=== PATIENT | female | born 1945 | race Caucasian/White ===

== ENCOUNTER → 2019-05-11 16:55 | Outpatient (BNVA) | payer MEDICARE, SELFPAY | PROVIDERS: Family Provider Family Medicine; PCP Family Medicine; Visit Provider Nurse Practitioner Family | DX: J98.11 Atelectasis (principal); J84.10 Pulmonary fibrosis, unspecified; R07.9 Chest pain, unspecified; R05 Cough; R69 Illness, unspecified; R53.1 Weakness; R09.89 Other specified symptoms and signs involving the circulatory and respiratory systems | CPT/HCPCS: 71046 ==

== ENCOUNTER 2019-05-15 12:03 | Emergency (ER) | payer MEDICARE, SELFPAY ==
[2019-05-15 12:10] VITALS: BP 139/65; PULSE 75; RESP 16; TEMP 36.4; O2SAT 96; BMI 26.2
--- NOTE | 2019-05-15 12:39 | ED_ITS ---
Entered by Suni Luis, acting as scribe for Dania Hernandez DO HPI - SOB/Dyspnea General: Chief Complaint: Shortness of Breath/Dyspnea Stated Complaint: SOB Time Seen by Provider: 05/15/19 12:39 Source: patient Mode of arrival: ambulatory Limitations: no limitations History of Present Illness: HPI Narrative: 73 yo Female presents to ED with complaint of shortness of breath. Pt states that this has been going on for 2-3 days. Pt states that it feels tight in her chest. Pt states that she was seen on Saturday at [facility] [place] and had a chest xray and was given antibiotics and an inhaler. Pt states that she hasn't gotten better. MD elicited complaint: shortness of breath Onset (ago): day(s) Context: recent illness Timing: constant Associated symptoms: Reports chest congestion; Deny abdominal pain, chest pain, extremity pain, fever(s), hemoptysis, nausea, orthopnea, polydipsia, polyuria or vomiting Treatment prior to arrival: bronchodilator Related Data: Home oxygen amount: none Review of Systems Const: Denies: fever, chills, change in appetite or malaise Eyes: Denies: change in vision, blurry vision, eye discharge or eye redness ENMT: Denies: throat pain, uvular edema, painful swallowing, mouth pain, dental pain, nasal congestion or facial/sinus pain Card: Denies: chest pain, irregular heart rhythm, swelling of feet/ankles, shortness of breath on exertion, shortness of breath when lying down or leg pain with exertion Resp: Reports: chest congestion; Denies: shortness of breath, productive cough, wheezing or coughing up blood GI: Denies: abdominal pain, nausea, vomiting, diarrhea, constipation or fecal incontinence : Denies: flank pain, difficulty urinating, painful urination, urinary frequency, urinary urgency or urinary hesitancy Musc: Denies: neck pain, back pain, extremity pain or extremity swelling Skin/Breast: Denies: rash, itching, redness, yellow skin or dry skin Neuro: Denies: headache, numbness in extremities, weakness in extremities, changes in sensation, lack of coordination or difficulty walking Psych: Denies: anxiety, depression, mood swings, panic attacks, sleeping less, suicidal ideation or homicidal ideation Endo: Denies: excessive urination, excessive thirst or tired all the time Andreas/Lymph: Denies: easy bruising, petechiae or enlarged lymph nodes All/Imm: Denies: hives, throat swelling, facial swelling, acute wheezing or seasonal allergies PFSH ED PFSH: Statuses (acute, chronic, etc) shown below reflect problem list status as previously entered and may not be historically accurate Social History Smoking and tobacco status: never smoked Alcohol intake: never Physical Exam Const: COMMON NORMALS: no apparent distress, oriented x3, no limitations, healthy appearing, alert and well nourished GENERAL APPEARANCE: cooperative, comfortable, well kempt and well developed ORIENTATION/CONSCIOUSNESS: Yes awake, Yes oriented to person, Yes oriented to place and Yes oriented to time HENMT: COMMON NORMALS: normocephalic, head/scalp atraumatic, hearing grossly normal bilaterally, external ears normal, EAC's normal, TM's normal bilaterally, external nose normal, nasal mucous membranes and turbinates normal, moist oral mucous membranes, oropharynx normal, dentition normal and gingiva normal HEAD & SCALP: normal to inspection, normocephalic and atraumatic FACE & SINUS: normal facial exam NOSE: external nose normal and nasal mucous membranes and turbinates normal EXTERNAL EAR: Yes external ears normal EXTERNAL AUDITORY CANAL: EAC's normal TYMPANIC MEMBRANE: TM's normal bilaterally MOUTH: oral and palatal mucosa normal, lip normal and tongue normal THROAT: no uvular edema Eye: COMMON NORMALS: PERRL, EOMs intact bilaterally, conjunctivae normal, no scleral icterus and normal visual bell by confrontation GENERAL EYE: normal appearance of both eyes and normal light reflex VISUAL ACUITY: Yes acuity normal ALIGNMENT: Yes alignment normal PERIORBITAL: periorbital findings normal EYELID: eyelids normal CONJUNCTIVA: Yes conjunctivae normal SCLERA: sclerae normal PUPIL: Yes PERRL and Yes accommodation reflex normal DIRECT OPHTHALMOSCOPY: Yes normal light reflex Neck/C-Spine: COMMON NORMALS: full ROM, no lymphadenopathy, supple, no meningeal signs and no JVD GENERAL: Yes normal visual inspection CAROTIDS: Yes normal carotid upstroke CERVICAL SPINE: Yes cervical ROM normal Lymph: LYMPHATIC: no lymphadenopathy noted Chest: COMMONS NORMALS: inspection of chest normal CHEST: Yes symmetrical chest wall rise Resp: COMMON NORMALS: normal respiratory effort, no retractions, no use of accessory muscles and clear to auscultation bilaterally EFFORT & INSPECTION: Yes able to speak in complete sentences and Yes symmetric chest movement AUSCULTATION: clear to auscultation bilaterally Cardio: COMMON NORMALS: no JVD, regular rate, regular rhythm, S1 normal heart sound, S2 normal heart sound, no murmurs and peripheral pulses 2+ throughout RATE: regular rate RHYTHM: regular rhythm HEART SOUNDS: S1 normal and S2 normal PERIPHERAL PULSES: pulses 2+ throughout GI: COMMON NORMALS: normal to inspection, nondistended, normoactive bowel sounds and non-tender : COMMON NORMALS: Yes no CVA tenderness BLADDER/KIDNEY EXAM: Yes no CVA tenderness Back/Pelvis: COMMON NORMALS: no CVA tenderness, thoracic and lumbar spine normal to inspection, no thoracic nor lumbar tenderness and thoraco-lumbar ROM normal Extremity: COMMON NORMALS: normal to inspection, full ROM, normal capillary refill, no calf tenderness and no pedal edema Neuro: COMMON NORMALS: oriented x3, CN's II-XII intact bilaterally, moves all extremities, no focal motor deficits, no sensory deficits noted and gait normal SENSORIUM/ORIENTATION: Yes alert, Yes oriented to person, Yes oriented to place and Yes oriented to time MENINGEAL SIGNS: Yes no meningeal signs SPEECH: speech normal GAIT: Yes normal gait MOTOR EXAM: strength 5/5 throughout, no pronator drift and no tremor noted Psych: COMMON NORMALS: mental status grossly normal, thought process normal, cooperative, affect normal, speech normal and activity/motor behavior normal APPEARANCE: Yes well kempt SPEECH: Yes normal speech THOUGHT PROCESS: normal thought process THOUGHT CONTENT: Yes normal thought content INSIGHT: insight good Skin: COMMON NORMALS: no rashes or lesions noted, no wounds, skin turgor normal and no jaundice GENERAL SKIN EXAM: no rashes or lesions noted and turgor normal Course ED course: rebeccat in no acute distress. Will obtain 2 view cxr, readminister a nebulizer therapy of atrovent and IM steroid. She is on Doxycycline and has an MDI at home, will provide a spacer to use with it. Advised hydrate well, viral URI's may last weeks, follow up with PCP, return for deterioration or new symptoms. Vital Signs: Vital signs: Vital Signs Temperature 97.5 F L 05/15/19 12:10 Pulse Rate 71 05/15/19 13:26 Respiratory Rate 18 05/15/19 13:26 Blood Pressure 122/79 05/15/19 13:26 Pulse Oximetry 92 05/15/19 13:26 MDM - SOB/Dyspnea Differential Diagnosis: Shortness of Breath Differential Diagnosis: Likely acute exacerbation of chronic obstructive airways disease and community acquired pneumonia Lab Data: Attestation: I reviewed the patient's lab results. Labs: Lab Results 05/15/19 05/15/19 Range/Units 14:23 14:23 WBC 12.7 H (4.0-10.0) 10^3/ uL RBC 4.42 (4.1-5.3) 10^6/u L Hgb 12.6 (11.5-15.3) g/dL Hct 38.8 (37.0-47.0) % MCV 87.8 (81-99) fL MCH 28.5 (28.0-34.0) pg MCHC 32.5 (30.0-36.0) g/dL RDW 14.6 (12.1-15.1) % Plt Count 211 (130-400) 10^3/c mm MPV 15.0 H (7.4-10.4) fL Neut % (Auto) 82.4 % Lymph % (Auto) 9.2 % [place] % (Auto) 7.4 % Eos % (Auto) 0.2 % Baso % (Auto) 0.3 % Neut # (Auto) 10.4 H (1.8-7.7) 10^3/u L Lymph # (Auto) 1.2 (0.8-4.8) 10^3/u L [place] # (Auto) 0.9 (0.2-0.9) 10^3/u L Eos # (Auto) 0.0 (0.0-0.8) 10^3/u L Baso # (Auto) 0.0 (0.0-0.1) 10^3/u L Nucleated RBC % (a uto) 0 % Nucleated RBCs # 0.0 /100WBC Sodium 142 (136-145) mmol/L Potassium 3.3 L (3.5-5.1) mmol/L Chloride 103 (98-107) mmol/L Carbon Dioxide 22 (22-29) mmol/L Anion Gap 20.3 H (5-19) BUN 15 (8-23) mg/dL Creatinine 0.8 (0.5-0.9) mg/dL Glucose 135 H (65-115) mg/dL Calcium 9.8 (8.5-10.5) mg/dL Magnesium 2.5 H (1.7-2.3) mg/dL Total Bilirubin 0.7 (0.15-1.2) mg/dL AST 17 (0-32) U/L ALT 8 (0-33) U/L Alkaline Phosphata se 151 H (35-105) IU/L NT-Pro-B Natriuret Pep 401 H (0-125) pg/mL Total Protein 7.8 (6.6-8.7) g/dL Albumin 3.4 L (3.5-5.2) g/dL Globulin 4.4 (1.3-4.6) g/dL Imaging Data^: CXR: Radiologist's impression: [place] [address] XRay Report Signed Patient: Dilip De La Vega #: [id number] : 6Acct#:[id number] Age/Sex: 73 / FADM Date: 05/15/19 Loc: [facility]/Bed: Attending Dr: Ordering Provider/Ordering MD: Dania Hernandez DO Date of Service: 05/15/19 Procedure(s): XR chest 2V* [id number] Accession Number(s): [id number] Report Number: [id number] WS: [id number] PA and lateral chest, 05/15/2019 Clinical Data: soa Comparison: PA and lateral chest, 05/11/2019 Findings: There is a small left pleural effusion atelectasis and/or pneumonia which has developed. There is linear atelectasis in the lateral aspect of the right lung unchanged. The upper lobes are clear. The heart size is at the upper limits of normal. The pulmonary vascularity is not increased. No nodules or masses are seen. The aortic arch is mildly tortuous. There are clips in the right upper quadrant from a cholecystectomy. XR/XR chest 2V* [id number] Impression: 1. Development of left lower lobe atelectasis, left effusion and possible pneumonia. 2. No change in lateral right lung linear atelectasis. Dictated By:Jesica Avila MD Signed By:Jesica Avila MDSigned Date/Time:05/15/19 1403 DD/ 1400 CT Chest: Radiologist's impression: [place] [address] CT Scan Report Signed Patient: Dilip De La Vega #: [id number] : 6Acct#:[id number] Age/Sex: 73 / FADM Date: 05/15/19 Loc: [facility]/Bed: Attending Dr: Ordering Provider/Ordering MD: Dania Hernandez DO Date of Service: 05/15/19 Procedure(s): CT chest wo con [id number] Accession Number(s): [id number] Report Number: [id number] PROCEDURE INFORMATION: Exam: CT Chest Without Contrast Exam date and time: 05/15/2019 2:48 PM Age: 73 years old Clinical indication: Shortness of breath; Patient HX: Dyspnea SOB x 2 weeks; Additional info: SOA TECHNIQUE: Imaging protocol: Computed tomography of the chest without contrast. Total DLP: 548.14 mGy-cm Radiation optimization: All CT scans at this facility use at least one of these dose optimization techniques: automated exposure control; mA and/or kV adjustment per patient size (includes targeted exams where dose is matched to clinical indication); or iterative reconstruction. COMPARISON: CR XR chest 2V* [id number] 05/15/2019 1:46 PM FINDINGS: Lungs: Moderate left lower lobe pneumonia with some atelectasis. Lobular peripheral airspace disease in the lateral segment right middle lobe most consistent with pneumonia and atelectasis. Mild right basilar pneumonia. Pleural space: Mild left pleural fluid collection in the posterior pleural space and loculated in the left major fissure. Heart: Unremarkable. No cardiomegaly. No pericardial effusion. Aorta: Calcification of the abdominal aorta and/or iliac arteries consistent with atherosclerotic vessel disease. Lymph nodes: Calcified right hilar nodes and/or mediastinal nodes and/or lung granulomas consistent with old granulomatous disease. 2.1 x 1.7 x 1.0 cm right paratracheal lymph node consistent with mild reactive adenopathy versus lymph node metastasis. Liver: Multiple hepatic cysts at least one of which measures larger than 1.0 cm in size. Other low-attenuation lesions in the liver are too small to characterize. Gallbladder and bile ducts: Surgical clips in the gallbladder fossa consistent with cholecystectomy. Spleen: One or more accessory splenules. Bones/joints: Moderate thoracic spondylosis. Soft tissues: Unremarkable. CT/CT chest wo con [id number] IMPRESSION: 1. Mild left pleural fluid collection in the posterior pleural space and loculated in the left major fissure. 2. Moderate left lower lobe pneumonia with some atelectasis. 3. 2.1 x 1.7 x 1.0 cm right paratracheal lymph node consistent with mild reactive adenopathy versus lymph node metastasis. 4. Lobular peripheral airspace disease in the lateral segment right middle lobe most consistent with pneumonia and atelectasis. 5. Mild right basilar pneumonia. Radiation Dose CTDIVOL = (mGy): DLP = 548.14 (mGy-cm) Dictated By:Marcell Ram MD Signed By:Marcell Ramigned Date/Time:05/15/191521 DD/ 152 Discharge Plan Discharge Patient Disposition: Home, Self-Care Clinical Impression: Community acquired pneumonia Qualifiers: Laterality: left Lung location: lower lobe of lung Qualified Code(s): J18.9 - Pneumonia, unspecified organism Condition: Stable Prescriptions: New levofloxacin [Levaquin] 750 mg tablet 750 mg PO DAILY 7 Days RF: 0 No Action diphenoxylate-atropine [Lomotil] 2.5-0.025 mg tablet 1 tab PO DAILY RF: 0 memantine 10 mg tablet 20 mg PO BID RF: 0 donepezil 10 mg tablet 10 mg PO DAILY RF: 0 doxycycline monohydrate 100 mg capsule 100 mg PO BID 7 Days Qty: 14 RF: 0 Discharge Orders: Discharge Order (Routine); Ordered 05/15/19 Ordered By: Dania Hernandez Referrals: Tanvi Renteria DO [Primary Care Provider] - Discharge Diet: Usual diet Discharge Activity: Resume usual activity Patient Instructions: Community-acquired Pneumonia (ED) Coding Level of Care Code ED [employer] for [facility] Fw Exam Problem Focused The documentation recorded by the Toby zapata Carmen, accurately reflects the service I personally performed and the decisions made by me, Dania Hernandez, DO
--- NOTE | 2019-05-15 13:04 | XR_ITS ---
WS: [id number] PA and lateral chest, 05/15/2019 Clinical Data: soa Comparison: PA and lateral chest, 05/11/2019 Findings: There is a small left pleural effusion atelectasis and/or pneumonia which has developed. Th ere is linear atelectasis in the lateral aspect of the right lung unchanged. The upper lobes are hermila r. The heart size is at the upper limits of normal. The pulmonary vascularity is not increased. No no dules or masses are seen. The aortic arch is mildly tortuous. There are clips in the right upper quad rant from a cholecystectomy. XR/XR chest 2V* [id number] Impression: 1. Development of left lower lobe atelectasis, left effusion and possible pneum onia. 2. No change in lateral right lung linear atelectasis.
[2019-05-15 13:18] VITALS: PULSE 77; RESP 16; O2SAT 92
[2019-05-15] MEDS: ipratropium-albuterol 3 mL Neb INHALATION (13:18)
[2019-05-15 13:24] VITALS: PULSE 79
[2019-05-15 13:26] VITALS: BP 122/79; PULSE 71; RESP 18; O2SAT 92
--- NOTE | 2019-05-15 13:55 | CTR_ITS ---
PROCEDURE INFORMATION: Exam: CT Chest Without Contrast Exam date and time: 05/15/2019 2:48 PM Age: 73 years old Clinical indication: Shortness of breath; Patient HX: Dyspnea SOB x 2 weeks; Additional info: SOA TECHNIQUE: Imaging protocol: Computed tomography of the chest without contrast. Total DLP: 548.14 mGy-cm Radiation optimization: All CT scans at this facility use at least one of these dose optimization techniques: automated exposure control; mA and/or kV adjustment per patient size (includes targeted exams where dose is matched to clinical indication); or iterative reconstruction. COMPARISON: CR XR chest 2V* [id number] 05/15/2019 1:46 PM FINDINGS: Lungs: Moderate left lower lobe pneumonia with some atelectasis. Lobular peripheral airspace disease in the lateral segment right middle lobe most consistent with pneumonia and atelectasis. Mild right basilar pneumonia. Pleural space: Mild left pleural fluid collection in the posterior pleural space and loculated in the left major fissure. Heart: Unremarkable. No cardiomegaly. No pericardial effusion. Aorta: Calcification of the abdominal aorta and/or iliac arteries consistent with atherosclerotic vessel disease. Lymph nodes: Calcified right hilar nodes and/or mediastinal nodes and/or lung granulomas consistent with old granulomatous disease. 2.1 x 1.7 x 1.0 cm right paratracheal lymph node consistent with mild reactive adenopathy versus lymph node metastasis. Liver: Multiple hepatic cysts at least one of which measures larger than 1.0 cm in size. Other low-attenuation lesions in the liver are too small to characterize. Gallbladder and bile ducts: Surgical clips in the gallbladder fossa consistent with cholecystectomy. Spleen: One or more accessory splenules. Bones/joints: Moderate thoracic spondylosis. Soft tissues: Unremarkable. CT/CT chest wo con [id number] IMPRESSION: 1. Mild left pleural fluid collection in the posterior pleural space and loculated in the left major fissure. 2. Moderate left lower lobe pneumonia with some atelectasis. 3. 2.1 x 1.7 x 1.0 cm right paratracheal lymph node consistent with mild reactive adenopathy versus lymph node metastasis. 4. Lobular peripheral airspace disease in the lateral segment right middle lobe most consistent with pneumonia and atelectasis. 5. Mild right basilar pneumonia. Radiation Dose CTDIVOL = (mGy): DLP = 548.14 (mGy-cm)
[2019-05-15 15:02] LABS: Basophils % 0.3 %; Eosinophils % 0.2 %; Hematocrit 38.8 % (37.0-47.0); Hemoglobin 12.6 g/dL (11.5-15.3); Lymphocytes # 1.2 10^3/uL (0.8-4.8); Lymphocytes % 9.2 %; Mean Corpuscular HGB Conc 32.5 g/dL (30.0-36.0); Mean Corpuscular Hemoglobin 28.5 pg (28.0-34.0); Mean Corpuscular Volume 87.8 fL (81-99); Monocytes # 0.9 10^3/uL (0.2-0.9); Monocytes % 7.4 %; Neutrophils # 10.4 10^3/uL (1.8-7.7); Neutrophils % 82.4 %; Nucleated Red Blood Cells % 0 %; Platelet Count 211 10^3/cmm (130-400); Red Blood Count 4.42 10^6/uL (4.1-5.3); Red Cell Distribution Width 14.6 % (12.1-15.1); White Blood Count 12.7 10^3/uL (4.0-10.0)
[2019-05-15] MEDS: cefTRIAXone 1,000 MG in sodium chloride 0.9% (plus) 50 ML 100 MG IV (15:05)
[2019-05-15 15:28] LABS: Alanine Aminotransferase 8 U/L (0-33); Albumin Level 3.4 g/dL (3.5-5.2); Alkaline Phosphatase 151 IU/L (35-105); Anion Gap 20.3 (5-19); Aspartate Amino Transferase 17 U/L (0-32); Blood Urea Nitrogen 15 mg/dL (8-23); Calcium 9.8 mg/dL (8.5-10.5); Carbon Dioxide 22 mmol/L (22-29); Chloride 103 mmol/L (98-107); Globulin 4.4 g/dL (1.3-4.6); Glucose 135 mg/dL (65-115); Magnesium 2.5 mg/dL (1.7-2.3); NT Pro B Type Natriuretic Pept 401 pg/mL (0-125); Potassium 3.3 mmol/L (3.5-5.1); Sodium 142 mmol/L (136-145); Total Bilirubin 0.7 mg/dL (0.15-1.2); Total Protein 7.8 g/dL (6.6-8.7)
[2019-05-15 15:37] LABS: Slide Review Slide Review Perform
[2019-05-15 16:05] VITALS: BP 141/71; PULSE 81; RESP 20; O2SAT 93
== END 2019-05-15 16:06 | disposition home or self-care (01) ==
LOC: ER 13:27
PROVIDERS: Emergency Provider Emergency Medicine; Family Provider Family Medicine; PCP Family Medicine
DX: J18.8 Other pneumonia, unspecified organism (principal)
CPT/HCPCS: 36415; 71046; 71250; 80053; 83735; 83880; 85025; 94640; 96365; 96375; 99282; 99284; J0696; J2930

== ENCOUNTER 2019-05-18 15:15 | Inpatient (IN) | payer MEDICARE, SELFPAY ==
[2019-05-18 15:56] VITALS: BP 125/67; PULSE 86; RESP 18; TEMP 36.4; O2SAT 96; BMI 26.2
--- NOTE | 2019-05-18 16:01 | XR_ITS ---
WS: [id number] Portable AP upright chest, 05/18/2019 Clinical Data: cough Comparison: PA and lateral chest, 05/15/2019 Findings: Small left pleural effusion with atelectasis and possible pneumonia has not changed. 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 The upper lobes are clear. No nodules, masses or effusions are seen. The heart is no rmal. The aortic arch and descending aorta shows mild tortuosity. There are clips in the right upper quadrant from a cholecystectomy. XR/XR chest 1V portable [id number] Impression: 1. No change in probable atelectasis, effusion and minimal pneumonia in the lef t lower lobe. 2. No change in linear atelectasis of lateral right lung.
[2019-05-18 17:20] LABS: Alanine Aminotransferase 10 U/L (0-33); Albumin Level 3.2 g/dL (3.5-5.2); Alkaline Phosphatase 135 IU/L (35-105); Anion Gap 17.7 (5-19); Aspartate Amino Transferase 21 U/L (0-32); Blood Urea Nitrogen 13 mg/dL (8-23); Calcium 9.8 mg/dL (8.5-10.5); Carbon Dioxide 24 mmol/L (22-29); Chloride 103 mmol/L (98-107); Globulin 4.1 g/dL (1.3-4.6); Glucose 123 mg/dL (65-115); Osmolality Calculated 290 mOsm/kg (285-295); Potassium 3.7 mmol/L (3.5-5.1); Sodium 141 mmol/L (136-145); Total Bilirubin 0.5 mg/dL (0.15-1.2); Total Protein 7.3 g/dL (6.6-8.7)
--- NOTE | 2019-05-18 20:09 | ED_ITS ---
Entered by Suni Luis, acting as scribe for Mary Ann Delgado Damian May 18, 2019 15:15 HPI - SOB/Dyspnea General: Chief Complaint: Shortness of Breath/Dyspnea Stated Complaint: sob Time Seen by Provider: 05/18/19 20:07 Source: patient and family Mode of arrival: wheelchair Limitations: no limitations History of Present Illness: HPI Narrative: 73 yo Female presents to ED with complaint of shortness of breath and painful inspiration. Pt was seen in the ED on Saturday and given Levaquin. Pt's states that the patient isn't any better, and they think she might be worse. Pt states that it hurts to take a breath. MD elicited complaint: shortness of breath and pain with inspiration Pertinent past history: pneumonia Onset (ago): day(s) Context: recent illness Timing: constant Exacerbating factors: inspiration Relieving factors: nothing Associated symptoms: Reports no associated symptoms; Deny abdominal pain, chest congestion, chest pain, diaphoresis, dizziness, extremity pain, fever(s), hemoptysis, nausea, orthopnea, palpitations, polydipsia, syncope or vomiting Treatment prior to arrival: none Related Data: Home oxygen amount: none Review of Systems General: Reports: other (negative unless marked) Const: Denies: fever, chills, body aches, fatigue, malaise or diaphoresis Eyes: Denies: change in vision or blurry vision ENMT: Denies: throat pain, painful swallowing, hoarseness, ear pain, ear discharge, Change in hearing or nasal discharge Card: Denies: chest pain, palpitations, irregular heart rhythm, syncope, pre- syncope, shortness of breath on exertion or shortness of breath when lying down Resp: Reports: shortness of breath and pain on inspiration; Denies: productive cough, non-productive cough, wheezing, coughing up blood or chest congestion GI: Denies: abdominal pain, nausea, vomiting, vomiting blood, coffee grounds in vomit, diarrhea, constipation, cramping, blood in stool or black tarry stool : Denies: flank pain, painful urination, urinary frequency, urinary urgency, decreased urine ouput, urinary incontinence or blood in urine Musc: Denies: neck pain, back pain, extremity pain, extremity swelling, joint pain, joint swelling, joint warmth or joint stiffness Skin/Breast: Denies: rash, skin tenderness or yellow skin Neuro: Denies: headache, numbness in extremities, weakness in extremities, changes in sensation, lack of coordination, difficulty walking, dizziness, vertigo or confusion Endo: Denies: excessive thirst, tired all the time, cold intolerance, excessive sweating, flushing or hot flashes Andreas/Lymph: Denies: easy bruising, easy bleeding, petechiae or enlarged lymph nodes All/Imm: Denies: hives, throat swelling, tongue swelling, facial swelling or acute wheezing PFSH ED PFSH: Statuses (acute, chronic, etc) shown below reflect problem list status as previously entered and may not be historically accurate Social History Smoking and tobacco status: never smoked Alcohol intake: never Physical Exam Const: COMMON NORMALS: no apparent distress, oriented x3, no limitations, healthy appearing and well nourished EXAM LIMITATIONS: no altered mental status GENERAL APPEARANCE: cooperative, well kempt and well developed ORIENTATION/CONSCIOUSNESS: Yes awake HENMT: COMMON NORMALS: normocephalic, head/scalp atraumatic, hearing grossly normal bilaterally, external ears normal, EAC's normal, external nose normal and moist oral mucous membranes HEAD & SCALP: normal to inspection, normocephalic and atraumatic FACE & SINUS: normal facial exam and face symmetric NOSE: external nose normal and nares normal EXTERNAL EAR: Yes external ears normal EXTERNAL AUDITORY CANAL: EAC's normal MOUTH: oral and palatal mucosa normal and tongue normal Eye: COMMON NORMALS: PERRL, EOMs intact bilaterally, conjunctivae normal and no scleral icterus GENERAL EYE: normal appearance of both eyes and normal light reflex CONJUNCTIVA: Yes conjunctivae normal SCLERA: sclerae normal CORNEA: Yes corneas normal PUPIL: Yes PERRL DIRECT OPHTHALMOSCOPY: Yes normal light reflex Neck/C-Spine: COMMON NORMALS: full ROM, no lymphadenopathy, supple, no meningeal signs and no JVD GENERAL: Yes normal visual inspection and Yes trachea midline CERVICAL SPINE: Yes cervical ROM normal Chest: COMMONS NORMALS: inspection of chest normal and palpation of chest normal Resp: COMMON NORMALS: normal respiratory effort, no retractions, no use of accessory muscles and clear to auscultation bilaterally EFFORT & INSPECTION: Yes able to speak in complete sentences AUSCULTATION: clear to auscultation bilaterally Cardio: COMMON NORMALS: no JVD, regular rate, regular rhythm, S1 normal heart sound, S2 normal heart sound, no gallops, no clicks, no murmurs and no rub JUGULAR VENOUS DISTENTION: no JVD RATE: regular rate RHYTHM: regular rhythm HEART SOUNDS: S1 normal and S2 normal GI: COMMON NORMALS: soft to palpation, non-tender, no hepatosplenomegaly and no masses INSPECTION: Yes normal to inspection PALPATION: Yes soft and Yes no hepatosplenomegaly : COMMON NORMALS: Yes no CVA tenderness BLADDER/KIDNEY EXAM: Yes no CVA tenderness Back/Pelvis: COMMON NORMALS: no CVA tenderness, thoracic and lumbar spine normal to inspection, no thoracic nor lumbar tenderness and thoraco-lumbar ROM normal Extremity: COMMON NORMALS: normal to inspection, full ROM, normal capillary refill, no joint enlargement, no clubbing, cyanosis or edema and no calf tenderness Neuro: COMMON NORMALS: oriented x3, CN's II-XII intact bilaterally, moves all extremities, no focal motor deficits and no sensory deficits noted MENINGEAL SIGNS: Yes no meningeal signs Psych: COMMON NORMALS: mental status grossly normal, thought process normal, cooperative, affect normal, speech normal and activity/motor behavior normal APPEARANCE: Yes well kempt SPEECH: Yes normal speech THOUGHT PROCESS: normal thought process Skin: COMMON NORMALS: no rashes or lesions noted, skin turgor normal, no jaundice, no petechiae and no mottling GENERAL SKIN EXAM: no rashes or lesions noted and turgor normal Course Consultations: Consultation #1: Call placed to Dr. Adams, Coding Clerk. Left message at 22:18 Time: 22:18 Consultation #2: Call placed to Dr. Hernandez, Cardiothorascic Surgery. Unable to leave message due to voicemail not being set up. Time: 22:19 Vital Signs: Vital signs: Vital Signs Temperature 97.6 F 05/18/19 15:56 Pulse Rate 73 05/18/19 21:23 Respiratory Rate 16 05/18/19 21:23 Blood Pressure 138/80 05/18/19 21:23 Pulse Oximetry 94 05/18/19 21:23 MDM - SOB/Dyspnea MDM Narrative: Medical decision making narrative: The case was reviewed with Drs. Bergeron and Bryan, they will admit and consult respectively. Lab Data: Labs: Lab Results 05/18/19 05/18/19 05/18/19 Range/Units 16:40 20:30 20:30 PT 16.60 H (10.5-13.3) SECO NDS INR 1.30 H (0.8-1.2) D-Dimer 6.41 H (0-0.59) ug/mIFE U Sodium 141 (136-145) mmol/L Potassium 3.7 (3.5-5.1) mmol/L Chloride 103 (98-107) mmol/L Carbon Dioxide 24 (22-29) mmol/L Anion Gap 17.7 (5-19) BUN 13 (8-23) mg/dL Creatinine 0.9 (0.5-0.9) mg/dL Glucose 123 H (65-115) mg/dL Calculated Osmolal ity 290 (285-295) mOsm/k g Lactic Acid 2.1 (0.5-2.2) mmol/L Calcium 9.8 (8.5-10.5) mg/dL Magnesium (1.7-2.3) mg/dL Total Bilirubin 0.5 (0.15-1.2) mg/dL AST 21 (0-32) U/L ALT 10 (0-33) U/L Alkaline Phosphata se 135 H (35-105) IU/L Troponin T Baselin e (0-10) ng/mL Total Protein 7.3 (6.6-8.7) g/dL Albumin 3.2 L (3.5-5.2) g/dL Globulin 4.1 (1.3-4.6) g/dL 05/18/19 05/18/19 Range/Units 20:30 20:30 PT (10.5-13.3) SECO NDS INR (0.8-1.2) D-Dimer (0-0.59) ug/mIFE U Sodium (136-145) mmol/L Potassium (3.5-5.1) mmol/L Chloride (98-107) mmol/L Carbon Dioxide (22-29) mmol/L Anion Gap (5-19) BUN (8-23) mg/dL Creatinine (0.5-0.9) mg/dL Glucose (65-115) mg/dL Calculated Osmolal ity (285-295) mOsm/k g Lactic Acid (0.5-2.2) mmol/L Calcium (8.5-10.5) mg/dL Magnesium 2.1 (1.7-2.3) mg/dL Total Bilirubin (0.15-1.2) mg/dL AST (0-32) U/L ALT (0-33) U/L Alkaline Phosphata se (35-105) IU/L Troponin T Baselin e 14 H (0-10) ng/mL Total Protein (6.6-8.7) g/dL Albumin (3.5-5.2) g/dL Globulin (1.3-4.6) g/dL Imaging Data^: CTA Chest: Radiologist's impression: [place] [address] CT Scan Report Signed with Addenda Patient: Dilip De La Vega #: [id number] : 6Acct#:[id number] Age/Sex: 73 / FADM Date: 05/18/19 Loc: ERRoom/Bed: Attending Dr: Ordering Provider/Ordering MD: Mary Ann Delgado DO Date of Service: 05/18/19 Procedure(s): CT angio chest PE protcl [id number] Accession Number(s): [id number] Report Number: [id number]/CT angio chest PE protcl [id number] The findings were discussed with Dr. Delgado on 05/18/2019 10:41 PM FOOT AND ANKLE SURGEON. Radiation Dose CTDIVOL = (mGy): DLP = 538.8 (mGy-cm) Addendum Dictated By: Guillaume Kramer MD Addendum Signed By: Guillaume Kramer MDSigned Date/Time:05/18/19 2243 Addendum Cosigned By: PROCEDURE INFORMATION: Exam: CT Angiography Chest With Contrast Exam date and time: 05/18/2019 9:39 PM Age: 73 years old Clinical indication: Shortness of breath; Patient HX: PT SOB x1 wk, pain left mid back across; Additional info: Dyspnea TECHNIQUE: Imaging protocol: Computed tomographic angiography of the chest with intravenous contrast. 3D rendering: MIP and/or 3D reconstructed images were created by the technologist. Total DLP: 538.8 mGy-cm Radiation optimization: All CT scans at this facility use at least one of these dose optimization techniques: automated exposure control; mA and/or kV adjustment per patient size (includes targeted exams where dose is matched to clinical indication); or iterative reconstruction. Contrast material: OMNIPAQUE 350; Contrast volume: 95 ml; Contrast route: IV; COMPARISON: CT chest [facility] [id number] 05/15/2019 3:11 PM FINDINGS: Heart size within normal limits. No right heart strain identified. Enlarged right paratracheal lymph node measuring 1 cm short axis on series 2, image 129. Filling defects noted in the right pulmonary artery, major trunk to the right upper lobe (and subsequent segmental pulmonary arteries), major trunk to the right middle lobe (and subsequent segmental pulmonary arteries), and major trunk of the right lower lobe (and subsequent segmental pulmonary arteries). These are consistent with pulmonary emboli. Filling defects noted in the left pulmonary artery, major trunk to the left upper lobe (and subsequent segmental pulmonary arteries), and major trunk to the left lower lobe (and subsequent segmental pulmonary arteries). These are consistent with pulmonary emboli. No thoracic aortic aneurysm identified. Right upper lobe: Minimal patchy atelectasis. Right middle lobe: Moderate area of airspace opacity laterally, similar to prior study. This may represent any combination of atelectasis, consolidation, and hemorrhage related to altered lung perfusion. Right lower lobe: Mild patchy atelectasis. Left upper lobe: Mild patchy atelectasis. Left lower lobe: Marked patchy airspace opacities. These may represent any combination of atelectasis, consolidation, and hemorrhage related to altered lung perfusion. These opacities are slightly increased relative to prior study. No pneumothorax. Trace right pleural effusion, new. Small left pleural effusion, similar to prior study. Images of the upper abdomen were reviewed. Status post cholecystectomy. Many well-defined homogeneous hypodense lesions scattered in the liver. Largest is in the right hepatic lobe and measures 5.5 cm x 3.5 cm. These may represent cysts and are similar to prior study. Flowing ossification anterior to the thoracic spine, consistent with diffuse idiopathic skeletal hyperostosis. CT/CT angio chest PE protcl [id number] IMPRESSION: 1. Numerous pulmonary emboli bilaterally, including emboli in the right pulmonary artery and left pulmonary artery. 2. Moderate area of airspace opacity in the right middle lobe laterally, similar to prior study. This may represent any combination of atelectasis, consolidation, and hemorrhage related to altered lung perfusion. 3. Marked patchy airspace opacities in the left lower lobe. These may represent any combination of atelectasis, consolidation, and hemorrhage related to altered lung perfusion. These opacities are slightly increased relative to prior study. 4. Trace right pleural effusion, new. Small left pleural effusion, similar to prior study. 5. Additional, nonemergent findings as above. Radiation Dose CTDIVOL = (mGy): DLP = 538.8 (mGy-cm) Dictated By:Guillaume Kramer MD Signed By:Guillaume Kramerigned Date/Time:05/18/192239 DD/ 38 CXR: Radiologist's impression: [address] [address] XRay Report Signed Patient: Dilip De La Vega #: [id number] : 6Acct#:[id number] Age/Sex: 73 / FADM Date: 05/18/19 Loc: ERRoom/Bed: Attending Dr: Ordering Provider/Ordering MD: Mary Ann Delgado DO Date of Service: 05/18/19 Procedure(s): XR chest 1V portable [id number] Accession Number(s): [id number] Report Number: [id number] WS: [id number] Portable AP upright chest, 05/18/2019 Clinical Data: cough Comparison: PA and lateral chest, 05/15/2019 Findings: Small left pleural effusion with atelectasis and possible pneumonia has not changed. 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 The upper lobes are clear. No nodules, masses or effusions are seen. The heart is normal. The aortic arch and descending aorta shows mild tortuosity. There are clips in the right upper quadrant from a cholecystectomy. XR/XR chest 1V portable [id number] Impression: 1. No change in probable atelectasis, effusion and minimal pneumonia in the left lower lobe. 2. No change in linear atelectasis of lateral right lung. Dictated By:Jesica Avila MD Signed By:Jesica Avilaigned Date/Time:05/18/191623 DD/ 20 EKG Data^: EKG 1: Attestation: I personally reviewed and interpreted this EKG as follows: EKG Interpretation Date: 05/18/19 EKG interpretation time: 20:54 Interpretation: Sinus rhythm with frequent PACs, no acute ST-T wave changes. Discharge Plan Discharge Patient Disposition: Admitted As Inpatient Clinical Impression: Pulmonary embolism Condition: Stable Prescriptions: No Action diphenoxylate-atropine [Lomotil] 2.5-0.025 mg tablet 1 tab PO DAILY RF: 0 memantine 10 mg tablet 20 mg PO BID RF: 0 donepezil 10 mg tablet 10 mg PO DAILY RF: 0 Levaquin 750 mg tablet 750 mg PO DAILY 7 Days RF: 0 Referrals: Tanvi Renteria DO [Primary Care Provider] - Coding Level of Care Code ED Manager Corporate Responsibility for Chg Fwd Exam Problem Focused The documentation recorded by the Toby zapata Carmen, accurately reflects the service I personally performed and the decisions made by Danny taylor Eli N May 18, 2019 15:15
--- NOTE | 2019-05-18 20:14 | ECG_ITS ---
Measurements Intervals [place] Rate: 78 P: 57 WV: 102 QRS: 7 QRSD: 99 T: 64 QT: 395 QTc: 451 SINUS RHYTHM WITH SHORT WV INTERVAL WITH FREQUENT SUPRAVENTRICULAR PREMATURE COM COMPLEXES MODERATE ST DEPRESSION [0.05+ mV ST DEPRESSION] No previous ECG available for comparison Electronically Signed On 05-19-2019 19:52:36 WAREHOUSE SUPERVISOR 3RD SHIFT by Carolin Moran M.D. [id number]
[2019-05-18 20:58] LABS: D Dimer 6.41 ug/mIFEU (0-0.59)
[2019-05-18 21:00] LABS: Magnesium 2.1 mg/dL (1.7-2.3); Troponin(5th) Baseline 14 ng/mL (0-10)
[2019-05-18 21:02] LABS: Lactic Sepsis W/Reflex 2.1 mmol/L (0.5-2.2)
--- NOTE | 2019-05-18 21:07 | CTR_ITS ---
PROCEDURE INFORMATION: Exam: CT Angiography Chest With Contrast Exam date and time: 05/18/2019 9:39 PM Age: 73 years old Clinical indication: Shortness of breath; Patient HX: PT SOB x1 wk, pain left mid back across; Additional info: Dyspnea TECHNIQUE: Imaging protocol: Computed tomographic angiography of the chest with intravenous contrast. 3D rendering: MIP and/or 3D reconstructed images were created by the technologist. Total DLP: 538.8 mGy-cm Radiation optimization: All CT scans at this facility use at least one of these dose optimization techniques: automated exposure control; mA and/or kV adjustment per patient size (includes targeted exams where dose is matched to clinical indication); or iterative reconstruction. Contrast material: OMNIPAQUE 350; Contrast volume: 95 ml; Contrast route: IV; COMPARISON: CT chest wo con [id number] 05/15/2019 3:11 PM FINDINGS: Heart size within normal limits. No right heart strain identified. Enlarged right paratracheal lymph node measuring 1 cm short axis on series 2, image 129. Filling defects noted in the right pulmonary artery, major trunk to the right upper lobe (and subsequent segmental pulmonary arteries), major trunk to the right middle lobe (and subsequent segmental pulmonary arteries), and major trunk of the right lower lobe (and subsequent segmental pulmonary arteries). These are consistent with pulmonary emboli. Filling defects noted in the left pulmonary artery, major trunk to the left upper lobe (and subsequent segmental pulmonary arteries), and major trunk to the left lower lobe (and subsequent segmental pulmonary arteries). These are consistent with pulmonary emboli. No thoracic aortic aneurysm identified. Right upper lobe: Minimal patchy atelectasis. Right middle lobe: Moderate area of airspace opacity laterally, similar to prior study. This may represent any combination of atelectasis, consolidation, and hemorrhage related to altered lung perfusion. Right lower lobe: Mild patchy atelectasis. Left upper lobe: Mild patchy atelectasis. Left lower lobe: Marked patchy airspace opacities. These may represent any combination of atelectasis, consolidation, and hemorrhage related to altered lung perfusion. These opacities are slightly increased relative to prior study. No pneumothorax. Trace right pleural effusion, new. Small left pleural effusion, similar to prior study. Images of the upper abdomen were reviewed. Status post cholecystectomy. Many well-defined homogeneous hypodense lesions scattered in the liver. Largest is in the right hepatic lobe and measures 5.5 cm x 3.5 cm. These may represent cysts and are similar to prior study. Flowing ossification anterior to the thoracic spine, consistent with diffuse idiopathic skeletal hyperostosis. CT/CT angio chest PE protcl [id number] IMPRESSION: 1. Numerous pulmonary emboli bilaterally, including emboli in the right pulmonary artery and left pulmonary artery. 2. Moderate area of airspace opacity in the right middle lobe laterally, similar to prior study. This may represent any combination of atelectasis, consolidation, and hemorrhage related to altered lung perfusion. 3. Marked patchy airspace opacities in the left lower lobe. These may represent any combination of atelectasis, consolidation, and hemorrhage related to altered lung perfusion. These opacities are slightly increased relative to prior study. 4. Trace right pleural effusion, new. Small left pleural effusion, similar to prior study. 5. Additional, nonemergent findings as above. Radiation Dose CTDIVOL = (mGy): DLP = 538.8 (mGy-cm)
[2019-05-18 21:23] VITALS: BP 138/80; PULSE 73; RESP 16; O2SAT 94
[2019-05-18] MEDS: iohexol 350 mg/mL 100 mL Btl IV (21:41)
--- NOTE | 2019-05-18 22:14 | ECG_ITS ---
Measurements Intervals [place] Rate: 71 P: 79 NV: 104 QRS: 34 QRSD: 97 T: 78 QT: 386 QTc: 420 SINUS RHYTHM WITH SHORT [place] INTERVAL WITH OCCASIONAL SUPRAVENTRICULAR PREMATURE COM COMPLEXES MODERATE ST DEPRESSION [0.05+ mV ST DEPRESSION] No previous ECG available for comparison Electronically Signed On 05-19-2019 20:05:26 MISSILE MECHANIC by Carolin Moran M.D. [id number]
[2019-05-18 22:19] LABS: Reflex Lactate Order REFLEX LACTIC ORDERD
[2019-05-18] MEDS: piperacillin-tazobactam 3.375 GM in sodium chloride 0.9% (plus) 50 ML IV (22:32)
--- NOTE | 2019-05-18 22:40 | USCV_ITS ---
Mary De La Vega Age: 73 Gender: F : 1945 Exam Date: 05/18/2019 23:26 Ordering Phys: Mary Ann Delgado DO Technologist: Lazaro Mcdowell Exam Location: [facility] [place]_ Indication: ? PE HISTORY: Lower extremity swelling. PROCEDURES: The venous duplex Doppler examination of both lower extremities was performed in the standard fashion. The following venous structures were evaluated: common femoral vein, profunda vein, proximal portion of the greater saphenous vein, superficial femoral vein, and the popliteal vein. Bilaterally, the common femoral, superficial femoral, profunda femoral, popliteal, posterior tibial, greater saphenous veins, and the peroneal trunk were identified and interrogated in the standard fashion. These veins were found to be easily compressible with spontaneous blood flow. No evidence of insufficiency or thrombus noted. FINDINGS: Normal 2-D Doppler and augmentation and compressibility throughout the lower extremity venous structures. Additional imaging through the proximal calf veins also reveals no thrombus. Limited evaluation of the greater saphenous vein is patent with no thrombus.. CONCLUSIONS No evidence of right lower extremity DVT. No evidence of left lower extremity DVT. Lazaro Zaldivar MD (Electronically Signed) Final Date: 19 May 2019 16:59 S
[2019-05-18 22:49] LABS: Basophils % 0.4 %; Eosinophils # 0.1 10^3/uL (0.0-0.8); Eosinophils % 0.6 %; Hematocrit 39.4 % (37.0-47.0); Hemoglobin 12.6 g/dL (11.5-15.3); Lymphocytes # 1.7 10^3/uL (0.8-4.8); Mean Corpuscular Hemoglobin 29.2 pg (28.0-34.0); Mean Corpuscular Volume 91.4 fL (81-99); Mean Platelet Volume 12.6 fL (7.4-10.4); Monocytes # 0.7 10^3/uL (0.2-0.9); Monocytes % 8.6 %; Neutrophils # 5.5 10^3/uL (1.8-7.7); Neutrophils % 67.3 %; Nucleated Red Blood Cells % 0 %; Platelet Count 263 10^3/cmm (130-400); Red Blood Count 4.31 10^6/uL (4.1-5.3); Red Cell Distribution Width 14.6 % (12.1-15.1); White Blood Count 8.2 10^3/uL (4.0-10.0)
--- NOTE | 2019-05-18 22:50 | USCV_ITS ---
Mary De La Vega Age: 73 Gender: F : 1945 Exam Date: 05/18/2019 23:09 Ordering Phys: Mary Ann Delgado DO Technologist: Lazaro Mcdowell Exam Location: [facility] [place] Indication: ? PE BP: 147 / 94 HR: 71 Rhythm: Sinus Technical Quality: Fair MEASUREMENTS (Male / Female) Normal Values 2D ECHO LV Diastolic Diameter PLAX 3.8 cm 4.2 - 5.9 / 3.9 - 5.3 cm LV Systolic Diameter PLAX 2.1 cm IVS Diastolic Thickness 1.1 cm 0.6 - 1.0 / 0.6 - 0.9 cm IVS Systolic Thickness 1.5 cm LVPW Diastolic Thickness 1.0 cm 0.6 - 1.0 / 0.6 - 0.9 cm LVPW Systolic Thickness 1.0 cm LVOT Diameter 2.0 cm LV Ejection Fraction 2D Teich 76.5 % LV Ejection Fraction MOD 2C 59.1 % LV Ejection Fraction 2C AL 58.1 % LA Diameter 3.3 cm LA Width 3.3 cm LA Height 4.6 cm RA Width 3.2 cm RA Height 4.6 cm M-MODE LV Diastolic Diameter MM 3.9 cm 4.2 - 5.9 / 3.9 - 5.3 cm LV Systolic Diameter MM 2.3 cm LV Ejection Fraction MM Teich 73.2 % IVS Diastolic Thickness MM 1.2 cm 0.6 - 1.0 / 0.6 - 0.9 cm IVS Systolic Thickness MM 1.5 cm LVPW Diastolic Thickness MM 0.8 cm 0.6 - 1.0 / 0.6 - 0.9 cm LVPW Systolic Thickness MM 1.4 cm RV Diastolic Diameter MM 2.0 cm Aortic Annulus Diameter 3.1 cm LA Ao Ratio MM 1.1 MV E Point Septal Separation 0.7 cm DOPPLER AV Peak Velocity 167.0 cm/s LVOT Peak Velocity 107.0 cm/s AV Area Cont Eq vti 1.9 cm squared AV Area Cont Eq pk 2.1 cm squared MV Area PHT 5.0 cm squared Mitral E to A Ratio 1.6 MV E' Velocity 13.0 cm/s Mitral E to MV E' Ratio 11.2 Mitral E to LV E' Lateral Ratio 9.0 Mitral E to LV E' Septal Ratio 14.9 TR Peak Velocity 319.0 cm/s TR Peak Gradient 40.8 mmHg TV Peak E Velocity 108.0 cm/s Right Atrial Pressure 3.0 mmHg Pulmonary Artery Systolic Pressu 43.7 mmHg FINDINGS Left Ventricle Normal left ventricular size and systolic function, EF 62 %. Mild left ventricular hypertrophy. No regional wall motion abnormalities. Right Ventricle Normal right ventricular size and systolic function. Right Atrium Normal right atrial size. Left Atrium There appears to have some extrinsic compression of the left atrium possibly from the dilated descending aorta Mitral Valve Trace mitral valve regurgitation. Aortic Valve Thickened aortic valve. Trace aortic valve regurgitation. Tricuspid Valve No gross abnormalities noted Pulmonic Valve No gross abnormalities noted Pericardium No significant pericardial effusion Aorta Possible dilated descending aorta CONCLUSIONS Normal left ventricular size and systolic function, EF 62 %. Mild left ventricular hypertrophy. No regional wall motion abnormalities. Thickened aortic valve. Trace aortic valve regurgitation. Trace mitral valve regurgitation. Possibly dilated descending aorta causing some extrinsic compression of the left atrium There is no pericardial effusion. Consider CTA, to better evaluate the thoracic aorta Dr Carolin Moran MD FACC (Electronically Signed) Final Date: 19 May 2019 22:30 S
[2019-05-18 23:02] LABS: Troponin 5 2HR 13.76 ng/mL (0-10)
[2019-05-18 23:03] LABS: Slide Review Slide Review Perform
[2019-05-18 23:05] LABS: Troponin 5 2HR Delta -0.24 ABS# (0-10)
[2019-05-18 23:26] LABS: NT Pro B Type Natriuretic Pept 531 pg/mL (0-125)
[2019-05-19] VITALS (13 sets, daily range): BP systolic 118–149; BP diastolic 62–83; PULSE 71–82; RESP 14–31; TEMP 36.5–36.8; O2SAT 90–96
[2019-05-19] MEDS: vancomycin 1,000 MG in sodium chloride 0.9% 250 ML 250 MG IV (00:33)
[2019-05-19] MEDS: enoxaparin 60 mg/0.6 mL Syringe SUBCUT (01:02)
--- NOTE | 2019-05-19 01:19 | PC.NURSE ---
Patient received from ED via stretcher. Patient able to ambulate with minimal contact assistance. Patient denies pain or other discomforts at this time. Patient requesting sandwich which was provided. Admission completed as documented. Lovenox given as ordered. Instruction provided regarding Lovenox. Patient verbalized complete understanding. No other distress observed.
--- NOTE | 2019-05-19 02:14 | ECG_ITS ---
Measurements Intervals [place] Rate: 80 P: 82 [place]: 92 QRS: 1 QRSD: 98 T: 102 QT: 374 QTc: 433 SINUS RHYTHM WITH SHORT [place] INTERVAL POSSIBLE LATERAL MYOCARDIAL INFARCTION [30 ms Q WAVE IN I/aVL/V5/V6], PROBABLY OLD No previous ECG available for comparison Electronically Signed On 05-19-2019 20:05:47 COMMUNITY LIVING SPECIALIST by Carolin Moran M.D. [email or web address]
[2019-05-19 02:45] LABS: Anion Gap 17.8 (5-19); Blood Urea Nitrogen 11 mg/dL (8-23); Calcium 9.1 mg/dL (8.5-10.5); Carbon Dioxide 24 mmol/L (22-29); Chloride 105 mmol/L (98-107); Glucose 169 mg/dL (65-115); Osmolality Calculated 296 mOsm/kg (285-295); Potassium 3.8 mmol/L (3.5-5.1); Sodium 143 mmol/L (136-145)
[2019-05-19 02:46] LABS: Troponin 5 6HR 11.17 ng/L (0-10)
[2019-05-19 02:54] LABS: Troponin 5 6HR Delta -2.83 ng/L (0-12)
[2019-05-19 02:59] LABS: Basophils % 0.4 %; Eosinophils # 0.1 10^3/uL (0.0-0.8); Eosinophils % 0.8 %; Hematocrit 39.3 % (37.0-47.0); Hemoglobin 12.7 g/dL (11.5-15.3); Lymphocytes % 25.8 %; Mean Corpuscular HGB Conc 32.3 g/dL (30.0-36.0); Mean Corpuscular Hemoglobin 28.4 pg (28.0-34.0); Mean Corpuscular Volume 87.9 fL (81-99); Mean Platelet Volume 12.8 fL (7.4-10.4); Monocytes # 0.6 10^3/uL (0.2-0.9); Monocytes % 8.2 %; Neutrophils # 4.7 10^3/uL (1.8-7.7); Neutrophils % 61.6 %; Nucleated Red Blood Cells % 0 %; Platelet Count 261 10^3/cmm (130-400); Red Blood Count 4.47 10^6/uL (4.1-5.3); Red Cell Distribution Width 14.6 % (12.1-15.1); White Blood Count 7.6 10^3/uL (4.0-10.0)
--- NOTE | 2019-05-19 06:20 | PM.HP ---
Providers/Chief Complaint Admitting Physician: Shira Marcos MD Primary Care Provider: Tanvi Renteria DO Chief Complaint: sob History of Present Illness Mary De La Vega is a 73 year old female who presented to the emergency room with chief complaint of pain with breathing and being more short of breath. She had been seen in the emergency room last week. Sounds like her symptoms originally started around 09 May. She had been on breathing treatments without improvement. From the emergency room, she was discharged with antibiotics to cover for community-acquired pneumonia.. She has not improved since then. It has gotten to the point that she is having pain in the middle of her back more so on the left side with deep inspiration and if she has any coughing. She has not been able to rest because of this. She denies any increasingly productive cough. No hemoptysis. She is not had recent fever. In the emergency room she was found to have numerous pulmonary emboli bilaterally including in both the right and left pulmonary arteries. Further she had significant airspace opacity in the right middle lobe and left lower lobe. Patient was maintaining oxygen saturation in the mid 90s on nasal cannula. Vital signs were otherwise stable. She is being admitted for further evaluation and treatment. ED provider did discuss with Dr. Adams who has agreed to see her in consultation. Medications/Allergies Allergies Allergy/AdvReac Type Severity Reaction Status Date / Time No Known Allergies Allergy Verified 05/18/19 16:01 PFSH Acute PFSH: Statuses (acute, chronic, etc) shown below reflect problem list status as previously entered and may not be historically accurate Surgical History H/O: hysterectomy History of colon resection Hx of cholecystectomy Family History Denies family history of CAD (coronary artery disease) Clotting disorder Bleeding disorder Social History Smoking and tobacco status: never smoked Alcohol intake: never Supplemental PFSH Information: Patient denies significant past medical history. Has taken medications for dementia including Namenda and Aricept in the past but denies taking these now. Vitals/I&O/Wt Last Vital Signs Temp 98.3 F 05/19/19 03:23 Pulse 71 05/19/19 03:23 Resp 24 H 05/19/19 03:23 BP 126/83 05/19/19 03:23 Pulse Ox 93 05/19/19 03:23 Weight last 48 hrs Weight 62.097 kg Weight 58.967 kg Physical Exam Const: COMMON NORMALS: average body habitus, oriented x3 and alert HENMT: COMMON NORMALS: normocephalic and head/scalp atraumatic Eye: COMMON NORMALS: PERRL and EOMs intact bilaterally Neck/C-Spine: COMMON NORMALS: supple Resp: COMMON NORMALS: normal respiratory effort and clear to auscultation bilaterally EFFORT & INSPECTION: Yes able to speak in complete sentences, Yes tachypneic and No retractions Cardio: COMMON NORMALS: regular rate, regular rhythm and no murmurs JUGULAR VENOUS DISTENTION: no JVD GI: COMMON NORMALS: normal to inspection, nondistended, normoactive bowel sounds, soft to palpation and non-tender Back/Pelvis: COMMON NORMALS: no CVA tenderness Extremity: COMMON NORMALS: normal to inspection GENERAL: Yes edema (1-2+ bilaterally) Neuro: COMMON NORMALS: moves all extremities Psych: COMMON NORMALS: mental status grossly normal and cooperative Skin: COMMON NORMALS: no rashes or lesions noted Data : 05/19/19 02:16 05/19/19 02:16 Micro: Microbiology 05/19/19 03:45 Blood Culture - Preliminary Blood SPECIMEN COLLECTED 05/19/19 03:45 Blood Culture - Preliminary Blood SPECIMEN COLLECTED A&P Assessment and plan (1) Pulmonary embolism: I suspect this is more of the issue here. Abnormalities noted on chest x-rays are likely related to this. My biggest concern is that she may have an occult malignancy. I do not have another reason for her to have such significant PEs right now. Status: Acute Qualifiers: Pulmonary embolism type: multiple subsegmental (without acute cor pulmonale) Qualified Code(s): I26.94 - Multiple subsegmental pulmonary emboli without acute cor pulmonale Code(s): I26.99 - Other pulmonary embolism without acute cor pulmonale (2) Community acquired pneumonia: Presumptive diagnosis for which patient has been treated lately without improvement cannot fully rule out but again suspect abnormalities and symptoms are related to above Status: Acute Qualifiers: Laterality: left Lung location: lower lobe of lung Qualified Code(s): J18.9 - Pneumonia, unspecified organism Code(s): J18.9 - Pneumonia, unspecified organism Additional A&P Information Inpatient admission Full anticoagulation Supplemental oxygen Preliminary report from echocardiogram was no significant right ventricular abnormality and normal ejection fraction. Will need to follow-up official report Dr. Adams has agreed to see in consultation Continue antibiotics Follow-up pending blood cultures Will need evaluation for occult malignancy as no clearly identifiable reason to develop multiple PEs Preliminary report from venous ultrasound showed no evidence of DVT. Follow-up official report Findings and plans discussed with patient and she was given an opportunity to ask questions Full code Attestations Medical Necessity Statement*: Anticipated stay greater than 2 midnights and patient with bilateral multiple PE stating further evaluation and initiation of treatment Coding Level of Care Code Acute Classifier for [facility] Fwd Diagnoses Pulmonary embolism I26.94 Pulmonary embolism type: multiple subsegmental (without acute cor pulmonale) Community acquired pneumonia J18.9 Laterality: left Lung location: lower lobe of lung
--- NOTE | 2019-05-19 07:04 | P.HP_ITS ---
Providers/Chief Complaint Admitting Physician: Shira Marcos MD Primary Care Provider: Tanvi Renteria DO Chief Complaint: sob History of Present Illness Mary De La Vega is a 73 year old female Medications/Allergies Allergies Allergy/AdvReac Type Severity Reaction Status Date / Time No Known Allergies Allergy Verified 05/18/19 16:01 PFSH Acute PFSH: Statuses (acute, chronic, etc) shown below reflect problem list status as previously entered and may not be historically accurate Surgical History (Updated 05/19/19 @ 07:06 by Shira Marcos MD) H/O: hysterectomy History of colon resection Hx of cholecystectomy Social History Smoking and tobacco status: never smoked Alcohol intake: never Vitals/I&O/Wt Last Vital Signs Temp 98.3 F 05/19/19 03:23 Pulse 71 05/19/19 03:23 Resp 24 H 05/19/19 03:23 BP 126/83 05/19/19 03:23 Pulse Ox 93 05/19/19 03:23 Weight last 48 hrs Weight 62.097 kg Weight 58.967 kg Data : 05/19/19 02:16 05/19/19 02:16 Micro: Microbiology 05/19/19 03:45 Blood Culture - Preliminary Blood SPECIMEN COLLECTED 05/19/19 03:45 Blood Culture - Preliminary Blood SPECIMEN COLLECTED 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
--- NOTE | 2019-05-19 08:53 | P.PN_ITS ---
Subjective Subjective: Interval history: Chart reviewed, including imaging. Pending Echo and venous duplex. VSS, currently on 2 L. No complaints other than some pleuritic pain on the L. She denies having had prior DVT or PE. She states that she had a hysterectomy for what was suspicious for uterine cancer turned out to be benign and she was about 27 years old. She has also had some kind of colon resection for what she states was suspicious findings for cancer that also turned out to be benign. Medications: Reviewed: Yes Medication Review Details: Current Medications Generic Name Dose Route Start Last Admin Trade Name Freq PRN Reason Stop Dose Admin Vancomycin HCl 1,0 00 mg/ 250 mls @ 250 mls /hr 05/18/19 23:30 05/19/19 00:33 Sodium Chloride IV 250 mls/hr Q24H KHARI Administration Vitals/I&O/Wt Last Vital Signs Temp 97.7 F 05/19/19 07:13 Pulse 71 05/19/19 07:13 Resp 14 05/19/19 07:13 BP 146/74 05/19/19 07:13 Pulse Ox 96 05/19/19 07:13 Weight last 48 hrs Weight 62.097 kg Weight 58.967 kg Physical Exam Const: COMMON NORMALS: no apparent distress and oriented x3 GENERAL APPEARANCE: cooperative and comfortable ORIENTATION/CONSCIOUSNESS: Yes awake HENMT: COMMON NORMALS: normocephalic, head/scalp atraumatic, hearing grossly normal bilaterally and moist oral mucous membranes HEAD & SCALP: normocephalic and atraumatic Eye: COMMON NORMALS: PERRL, EOMs intact bilaterally and conjunctivae normal CONJUNCTIVA: Yes conjunctivae normal PUPIL: Yes PERRL Neck/C-Spine: COMMON NORMALS: full ROM GENERAL: Yes normal visual inspection and Yes trachea midline Resp: COMMON NORMALS: normal respiratory effort, no retractions, no use of accessory muscles and clear to auscultation bilaterally EFFORT & INSPECTION: Yes able to speak in complete sentences, Yes symmetric chest movement and No tachypneic AUSCULTATION: clear to auscultation bilaterally OTHER: -on 2 L NC Cardio: COMMON NORMALS: regular rate, regular rhythm, S1 normal heart sound, S2 normal heart sound and no murmurs RATE: regular rate RHYTHM: regular rhythm HEART SOUNDS: S1 normal and S2 normal GI: COMMON NORMALS: normal to inspection, nondistended, normoactive bowel sounds, soft to palpation and non-tender PALPATION: Yes soft Extremity: COMMON NORMALS: normal to inspection, full ROM and no clubbing, cyanosis or edema; negative for no pedal edema Neuro: COMMON NORMALS: oriented x3, moves all extremities, no focal motor deficits and no sensory deficits noted Psych: COMMON NORMALS: mental status grossly normal, thought process normal, cooperative, affect normal and speech normal SPEECH: Yes normal speech THOUGHT PROCESS: normal thought process Skin: COMMON NORMALS: no rashes or lesions noted, no jaundice, no petechiae and no mottling GENERAL SKIN EXAM: no rashes or lesions noted Data : 05/19/19 02:16 05/19/19 02:16 Micro: Microbiology 05/19/19 03:45 Blood Culture - Preliminary Blood SPECIMEN COLLECTED 05/19/19 03:45 Blood Culture - Preliminary Blood SPECIMEN COLLECTED A&P Assessment and plan (1) Pulmonary embolism: -multiple bilateral PE on CTA; noted elevated D-dimer -venous duplex pending -on therapeutic Lovenox -fall precautions -monitor respiratory status; supplemental oxygen as needed; not oxygen dependent at baseline -Echo pending to assess for R heart strain -unclear what provoked VTE -Dr. Adams consulted Status: Acute Qualifiers: Pulmonary embolism type: multiple subsegmental (without acute cor pulmonale) Qualified Code(s): I26.94 - Multiple subsegmental pulmonary emboli without acute cor pulmonale Code(s): I26.99 - Other pulmonary embolism without acute cor pulmonale (2) Community acquired pneumonia: -noted opacity involving RML, LLL; could also be component of hemorrhage and atelectasis given PE -no leukocytosis, afebrile -on Vancomycin -f/u blood cx Status: Acute Qualifiers: Laterality: left Lung location: lower lobe of lung Qualified Code(s): J18.9 - Pneumonia, unspecified organism Code(s): J18.9 - Pneumonia, unspecified organism Additional A&P Information -Dementia -cardiac diet as tolerated -fall precautions, up with assist -DVT ppx not needed as on therapeutic anticoagulation -no prior medical records to reference -Dispo: home -Code status: FULL code Attestations Medical Necessity Statement*: Patient requires hospitalization for management of bilateral PE and PNA, on therapeutic anticoagulation and IV antibiotics. Time Spent in Patient Care: Greater than 35 minutes (>than 50% of time spent in counselling and/or direct pt care on unit) . 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
[2019-05-19] MEDS: enoxaparin 100 mg/mL Syringe 60 MG SUBCUT (09:27)
[2019-05-19] MEDS: piperacillin-tazobactam 3.375 GM in sodium chloride 0.9% (plus) 50 ML IV ×2 (10:09→18:11)
[2019-05-19] MEDS: sodium chloride 0.9% 100 ML 75 ML (10:15)
--- NOTE | 2019-05-19 10:26 | P.CONIM_ITS ---
Providers/Reason For Consult Consulting Physican/Specialty*: Pulmonary critical care medicine Reason for Consult*: Bilateral pulmonary embolus Attending Physician: Juany Franklin MD Primary Care Provider: Tanvi Renteria DO History of Present Illness History of Present Illness Mary De La Vega is a 73 year old female who presented to the ER yesterday with worsening shortness of breath. The patient was recently seen in the ER on May 15 at which time she underwent a CT scan of her chest and was diagnosed with left lower lobe pneumonia with a suspected parapneumonic effusion and was discharged home on antibiotic. The patient presented yesterday with worsening shortness of breath and a CT angiogram revealed pulmonary embolus involving both main pulmonary arteries as well as segmental branches. I discussed the patient's care with the ER physician overnight. The patient at the time was not tachycardic, requiring no oxygen, minimally elevated high-sensitivity troponin and pro-terminal BNP. I had deemed the patient to be at low risk and the patient was admitted to cardiac stepdown and started on anticoagulation. I had seen and examined the patient today. The patient appears absolutely comfortable without any significant shortness of breath while resting. She does not have any significant cough or sputum production. She denies any fever night sweats or chills. The only complaint that the patient has is pain in the left lower anterior chest. Her daughter was present at bedside. The patient states that she was told that she had shingles. When she started complaining of this left lower chest pain about 3 weeks ago. This was followed by the last ER visit when she was diagnosed with pneumonia and was discharged home with Levaquin to complete a course of [address] scan on May [address] There was no evidence of incidentally identified pulmonary embolism at the time. Review of Systems Narrative: General: No fevers chills night sweats Skin: No rash HEENT: No nasal congestion, rhinitis, sinusitis, sneezing, hoarseness of voice. Neck: There is no neck swelling, mass or swollen glands. Respiratory: Please see my HPI. Cardiovascular: Left anterior chest pain.no shortness of breath, orthopnea, proximal nocturnal dyspnea, palpitation or lower extremity edema. Gastrointestinal: No abdominal pain, nausea, vomiting, melena or symptoms suggestive of GERD. Musculoskeletal: No joint pain or swelling, muscle weakness, morning stiffness, numbness or tingling. Neurological: Patient is awake alert and oriented x3, no paralysis, gross motor function is normal. Psychiatric: No anxiety or depression. Meds/Allergies Home Medications and Allergies Home Medications Medication Instructions Recorded Confirmed Type diphenoxylate-atropine 2.5 1 tab PO DAILY PRN 05/11/19 05/19/19 History mg-0.025 mg tablet Allergies Allergy/AdvReac Type Severity Reaction Status Date / Time No Known Allergies Allergy Verified 05/18/19 16:01 Current Medications Current Medications Generic Name Dose Route Start Last Admin Trade Name Freq PRN Reason Stop Dose Admin Enoxaparin Sodium 60 mg 05/19/19 10:00 05/19/19 09:27 Lovenox 1 mg/kg (60 mg) 60 mg SUBCUT Administration Q12H KHARI Piperacillin Sod/Tazobactam 50 mls @ 12.5 mls/hr 05/19/19 09:15 05/19/19 10:09 Sod 3.375 gm/ Sodium Chloride IV 12.5 mls/hr Q8H KHARI Administration Protocol PFSH Acute PFSH: Statuses (acute, chronic, etc) shown below reflect problem list status as previously entered and may not be historically accurate Surgical History H/O: hysterectomy (Acute) History of colon resection (Acute) Hx of cholecystectomy (Acute) Family History Denies family history of CAD (coronary artery disease) Clotting disorder Bleeding disorder Social History Smoking and tobacco status: never smoked Alcohol intake: never Vitals/I&O/Wt Last Vital Signs Temp 97.9 F 05/19/19 08:55 Pulse 82 05/19/19 08:54 Resp 31 H 05/19/19 08:54 BP 118/67 05/19/19 08:54 Pulse Ox 96 05/19/19 08:54 05/18/19 05/19/19 05/19/19 22:59 06:59 14:59 Intake Total 120 / 120 Balance 120 / 120 Weight last 48 hrs Weight 136 lb 14.4 oz Weight 130 lb Physical Exam Narrative: EXAM NARRATIVE: General: Patient is awake alert and oriented, in no distress. HEENT: Pupil bilateral symmetric, light and accommodation reflex present, extraocular muscle movement intact Neck: No JVD, no cervical or supraclavicular lymphadenopathy. Respiratory: Inspection: No visible deformity of the chest wall, no scar, no mass lesion, no visible heaving of the apical impulse Palpation: Trachea is mildly deviated to the right, reduced expansion in the left lower hemithorax, reduced vocal fremitus in the left lower hemithorax Percussion: Dullness to percussion on the left lower hemithorax in comparison to the right side Auscultation: Reduced breath sound in the left lower hemithorax, reduced vocal resonance over the same area, no crackles wheezing or rhonchi Cardiovascular: Regular rate and rhythm, S1-S2 present, no murmur, no right v entricular heave, no peripheral edema. Abdomen: Soft, nontender, nondistended, positive bowel sound. No palpable organomegaly. Musculoskeletal: No obvious joint deformity Skin: No rash, no evidence of erythema nodosum or multiforme. Neuro: Mental status is normal, no gross cranial nerve deficit, normal motor and coordination. Data Micro: Micro: Microbiology 05/19/19 03:45 Blood Culture - Pr eliminary Blood SPECIMEN [facility] 05/19/19 03:45 Blood Culture - Pr eliminary Blood SPECIMEN [facility] Imaging^: CTA Chest: My impression: The CT angiogram revealed pulmonary embolism involving bilateral main pulmonary artery as well as segmental branches. There is no significant dilation of the right ventricle. There was also evidence of left lower lobe infiltrate with loculated left-sided pleural effusion. A&P Assessment and plan (1) Pulmonary embolism: The patient has multiple pulmonary embolism including bilateral main pulmonary arteries. However the patient does not have any of the high risk factors for hemodynamic compromise. The patient is not tachycardic, not hypoxic with normal blood pressure. There is minimal elevation of high-sensitivity troponin and N-terminal proBNP. I had performed a bedside ultrasound which revealed RV LV ratio to be less than 0.9, good fractional shortening of the RV as well as TAPSE The patient is currently anticoagulated with Lovenox. She can be started on oral novel anticoagulant, apixaban with 10 mg twice a day for 7 days followed by 5 mg twice a day. The bilateral lower extremity Doppler study and echocardiogram is pending. Status: Acute Code(s): I26.99 - Other pulmonary embolism without acute cor pulmonale (2) Loculated pleural effusion: The bedside ultrasound revealed simple small left-sided pleural effusion without any sign of complexity including fibrinous stranding or plankton sign. The patient is afebrile, with a normal white count. The fluid collection in the left major fissure is inaccessible for drainage. There is no clinical evidence of empyema. I am going to discontinue the vancomycin. The patient is currently on Zosyn. She can be discharged on Augmentin to complete a total 7-day therapy as per the new IDSA guideline. I will follow-up the patient in the office within a week. Her pleural effusion had been stable since May 15. Status: Acute Code(s): J90 - Pleural effusion, not elsewhere classified (3) Community acquired pneumonia: The patient can be treated with Augmentin when she is ready for discharge. Thank you for the consultation. Status: Acute Qualifiers: Laterality: left Lung location: lower lobe of lung Qualified Code(s): J18.9 - Pneumonia, unspecified organism Code(s): J18.9 - Pneumonia, unspecified organism (4) Mediastinal lymphadenopathy: The patient has right paratracheal lymphadenopathy. This is most likely reactive. I can follow-up as outpatient for this. 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
--- NOTE | 2019-05-19 12:44 | PC.CHAP ---
Pastoral Care Encounter/Spiritual Assessment Type of Contact [] Declined manager garden visit [] Patient/Family/Request visit [] Outpatient visit [] Follow-up visit [] Physician referral [] Code/Alert [] Routine visit [] Staff referral [] Actively dying [] Patient sleeping [x] Family support [] [] Out of room [] Palliative care [] [] Receiving care in room [] Pre-surgical visit [] Trauma [] Long length of stay [] ICU visit [] Other: Relational/Emotional Strength [] Patient feels connected with others/family/visitors/staff [] Distress [] Loneliness/isolation [] Abandonment Spirituality of Patient [x] Person of Michelle [] Attends Protestant of their Michelle [x] Believes in Prayer [] Reads Bible or Pentecostalism materials [] There are Spiritual issues to be addressed Alligator Hunter Interventions [x] Prayer [] Active listening [] Non-anxious presence [] Spiritual/emotional support [] Crisis/trauma care [] Spiritual counseling [] Bereavement support [] Provided bereavement packet [] Provided Bible/devotional materials [] Provided toy/stuffed animal, coloring book to patient or family member [] Provided Communion [] Anointing/[place] [] Salvation [x] Completed spiritual assessment [] Other: Impact on Illness or Injury [] Angry [] Fearful [] Anxious [] Often cries [] Exhaustion [] Unable to work [] Unable to attend scientologist [] Unable to walk/stand [] Unable to read [] Unable to drive [] Unable to eat/drink [] Unable to sleep [] Unable to be with family [] Patient intubated [] Other: Summary family present. Time spent with patient 10min
[2019-05-19] MEDS: diphenoxylate/atropine Tablet 1 TAB PO (14:07)
[2019-05-19] MEDS: apixaban 5 mg Tablet 10 MG PO (18:15)
--- NOTE | 2019-05-19 20:16 | PC.NURSE ---
Assumed care of patient at 1910 after receiving bedside report from Liz Avina RN. Family at bedside. Discussed plan for the evening. Family and patient verbalized complete understanding. Noted patient to be forgetful of the day. Will continue to reinforce plan of care with patient.
[2019-05-20 00:30] VITALS: PULSE 80; O2SAT 92
[2019-05-20] MEDS: piperacillin-tazobactam 3.375 GM in sodium chloride 0.9% (plus) 50 ML IV ×2 (01:12→07:49)
[2019-05-20 04:00] VITALS: BP 114/57; PULSE 73; RESP 22; TEMP 36.8; O2SAT 92
[2019-05-20 05:05] LABS: Basophils % 0.5 %; Eosinophils # 0.1 10^3/uL (0.0-0.8); Eosinophils % 1.6 %; Hematocrit 39.1 % (37.0-47.0); Hemoglobin 12.2 g/dL (11.5-15.3); Lymphocytes # 1.6 10^3/uL (0.8-4.8); Lymphocytes % 21.9 %; Mean Corpuscular HGB Conc 31.2 g/dL (30.0-36.0); Mean Corpuscular Hemoglobin 28.6 pg (28.0-34.0); Mean Corpuscular Volume 91.6 fL (81-99); Mean Platelet Volume 12.7 fL (7.4-10.4); Monocytes # 0.6 10^3/uL (0.2-0.9); Monocytes % 8.1 %; Neutrophils # 4.8 10^3/uL (1.8-7.7); Neutrophils % 64.5 %; Nucleated Red Blood Cells % 0 %; Platelet Count 272 10^3/cmm (130-400); Red Blood Count 4.27 10^6/uL (4.1-5.3); Red Cell Distribution Width 14.6 % (12.1-15.1); White Blood Count 7.4 10^3/uL (4.0-10.0)
[2019-05-20 05:32] LABS: Anion Gap 15.2 (5-19); Blood Urea Nitrogen 12 mg/dL (8-23); Calcium 8.9 mg/dL (8.5-10.5); Carbon Dioxide 24 mmol/L (22-29); Chloride 106 mmol/L (98-107); Glucose 148 mg/dL (65-115); Osmolality Calculated 291 mOsm/kg (285-295); Potassium 4.2 mmol/L (3.5-5.1); Sodium 141 mmol/L (136-145)
[2019-05-20 07:13] VITALS: BP 126/67; PULSE 72; RESP 20; TEMP 36.5; O2SAT 95
[2019-05-20] MEDS: acetaminophen 325 mg Tablet 650 MG PO (07:44)
[2019-05-20] MEDS: apixaban 5 mg Tablet 10 MG PO (07:44)
--- NOTE | 2019-05-20 09:10 | PM.DCS ---
Discharge Providers Date of Admission: 05/18/19 22:44 Date of Discharge: May 20, 2019 Attending Provider at Admission: Shira Marcos MD Attending Provider at Discharge: Juany Franklin MD Primary Care Provider: Tanvi Renteria DO Diagnoses at Discharge Discharge Diagnosis (1) Pulmonary embolism: Status: Acute Problem details: -multiple bilateral PE on CTA; noted elevated D-dimer -venous duplex negative for DVT bilaterally -off therapeutic Lovenox; started on Eliquis -fall precautions -stable respiratory status; supplemental oxygen as needed; not oxygen dependent at baseline -Echo: EF=62%, mild LVH, no RWMA, trace MR; no evidence of RV strain -unclear what provoked VTE -Dr. Adams consult appreciated; will f/u in 1 week Qualifiers: Pulmonary embolism type: multiple subsegmental (without acute cor pulmonale) Qualified Code(s): I26.94 - Multiple subsegmental pulmonary emboli without acute cor pulmonale (2) Community acquired pneumonia: Status: Acute Problem details: -noted opacity involving RML, LLL; could also be component of hemorrhage and atelectasis given PE -no leukocytosis, afebrile -on Vancomycin; will d/c on Augmentin -blood cx: prelim negative Qualifiers: Laterality: left Lung location: lower lobe of lung Qualified Code(s): J18.9 - Pneumonia, unspecified organism Reason for Visit Reason for Visit: Reason For Visit: sob Hospital Course Hospital Course: Patient was admitted to the cardiac stepdown unit and started on therapeutic anticoagulation with Lovenox as well as empiric antibiotic therapy secondary to finding of pneumonia on imaging. Dr. Adams was consulted and was gracious enough to see the patient. Recommended transitioning her to Eliquis and discharging her on a course of Augmentin. He will follow-up with the patient in approximately 1 week. Further work-up included a venous duplex which was negative for DVT bilaterally as well as echo to evaluate for right heart strain which was negative. Patient has been hemodynamically stable with minimal oxygen requirement. She is not oxygen dependent at baseline so had a home O2 evaluation done prior to discharge; she does not qualify for oxygen. She will continue anticoagulation with Eliquis and complete a 7-day course of Augmentin. It is unclear at this time what may have provoked the PE. Patient counseled on need to seek medical attention immediately should she have a fall particularly with head trauma or if noticing blood in her urine/stool or expectoration. Discharge Summary: -Patient to follow-up with primary care physician within 1 week -Patient to follow up with Dr. Adams in 1 week Physical Exam Const: COMMON NORMALS: no apparent distress and oriented x3 GENERAL APPEARANCE: cooperative and comfortable ORIENTATION/CONSCIOUSNESS: Yes awake HENMT: COMMON NORMALS: normocephalic, head/scalp atraumatic, hearing grossly normal bilaterally and moist oral mucous membranes HEAD & SCALP: normocephalic and atraumatic Eye: COMMON NORMALS: PERRL, EOMs intact bilaterally and conjunctivae normal CONJUNCTIVA: Yes conjunctivae normal PUPIL: Yes PERRL Neck/C-Spine: COMMON NORMALS: full ROM GENERAL: Yes normal visual inspection and Yes trachea midline Resp: COMMON NORMALS: normal respiratory effort, no retractions, no use of accessory muscles and clear to auscultation bilaterally EFFORT & INSPECTION: Yes able to speak in complete sentences, Yes symmetric chest movement and No tachypneic AUSCULTATION: clear to auscultation bilaterally OTHER: -on 2 L NC Cardio: COMMON NORMALS: regular rate, regular rhythm, S1 normal heart sound, S2 normal heart sound and no murmurs RATE: regular rate RHYTHM: regular rhythm HEART SOUNDS: S1 normal and S2 normal GI: COMMON NORMALS: normal to inspection, nondistended, normoactive bowel sounds, soft to palpation and non-tender PALPATION: Yes soft Extremity: COMMON NORMALS: normal to inspection, full ROM and no clubbing, cyanosis or edema; negative for no pedal edema Neuro: COMMON NORMALS: oriented x3, moves all extremities, no focal motor deficits and no sensory deficits noted Psych: COMMON NORMALS: mental status grossly normal, thought process normal, cooperative, affect normal and speech normal SPEECH: Yes normal speech THOUGHT PROCESS: normal thought process Skin: COMMON NORMALS: no rashes or lesions noted, no jaundice, no petechiae and no mottling GENERAL SKIN EXAM: no rashes or lesions noted Discharge Data Data Completed and Pending: Completed Studies During Hospitalization Category Date Time Status CT angio chest PE protcl [id number] Stat Cat Scan 05/18/19 21:07 Completed XR chest 1V lillie ble [id number] Stat Exams 05/18/19 16:01 Completed CV echo limited 9 6320 Urgent Ultrasound 05/18/19 22:50 [place] [id number] Urgent Ultrasound 05/18/19 22:40 Completed Pending at discharge Category Date Time Status Blood Culture [facility] 05/19/19 03:45 Results Blood Culture [facility] 05/19/19 03:45 Results Labs from last 24 hours 05/20/19 05/20/19 03:35 03:35 WBC 7.4 RBC 4.27 Hgb 12.2 Hct 39.1 MCV 91.6 MCH 28.6 MCHC 31.2 RDW 14.6 Plt Count 272 MPV 12.7 H Neut % (Auto) 64.5 Lymph % (Auto) 21.9 [place] % (Auto) 8.1 Eos % (Auto) 1.6 Baso % (Auto) 0.5 Neut # (Auto) 4.8 Lymph # (Auto) 1.6 [place] # (Auto) 0.6 Eos # (Auto) 0.1 Baso # (Auto) 0.0 Nucleated RBC % (a uto) 0 Nucleated RBCs # 0.0 Sodium 141 Potassium 4.2 Chloride 106 Carbon Dioxide 24 Anion Gap 15.2 BUN 12 Creatinine 0.8 Glucose 148 H Calculated Osmolal ity 291 Calcium 8.9 Vitals: Last Vital Signs Temp 97.7 F 05/20/19 07:13 Pulse 72 05/20/19 07:13 Resp 20 H 05/20/19 07:13 BP 126/67 05/20/19 07:13 Pulse Ox 95 05/20/19 07:13 Discharge Plan Discharge Patient Disposition: Home, Self-Care Condition: Stable Prescriptions: New Eliquis DVT-PE Treat 30D Start 5 mg (74 tabs) tablets,dose pack See Rx Instructions .ROUTE .COMPLEX 30 Days Qty: 74 RF: 0 Augmentin 875-125 mg tablet 1 tab PO BID 7 Days Qty: 14 RF: 0 Continued diphenoxylate-atropine [Lomotil] 2.5-0.025 mg tablet 1 tab PO DAILY PRN (Reason: Diarrhea) RF: 0 Discharge Orders: Discharge Order (Routine); Ordered 05/20/19 Ordered By: Juany Franklin Referrals: Chauncey Adams MD [Physician] - 1 week (You have an follow-up appointment with Dr. Adams at [facility] on May, 9 at 2:30pm. If, you have any question or need reschedule. Please, call ) Tanvi Renteria, [Primary Care Provider] - 4-7 days (You have an follow-up appointment with Tanvi Renteria Saturday, May 25 at 8:40am. If, you have any questions or need to reschedule. Please, call [phone].) Discharge Diet: Regular Discharge Activity: Resume usual activity Patient Instructions: Amoxicillin/Clavulanate Potassium (By mouth), Apixaban (By mouth), Pulmonary Embolism (DC), Pleural Effusion (DC), Community-acquired Pneumonia (DC) Activity Restrictions/Additional Instructions: Please seek medical attention immediately if you notice blood in your urine or stool or if coughing up blood; following a fall particularly if you hit your head Discharge Date/Time: 05/20/19 12:53 Discharge Attestations Time Spent in Discharge Care*: greater than 30 min Specific Discharge Activities: Specific discharge activities: educating patient, discussing with pcp/other providers, discussing with rehabilitation case coordinator/social workers/dc planners, documenting/other paperwork and evaluating patient/reviewing data Status at Discharge: Cognitive status at discharge: cognitively intact, Behavioral status at discharge: cooperative, Functional status at discharge: independent ambulation Overall status at discharge: patient is back to baseline Quality Metrics Clinical Quality Measures During this hospital stay, did patient experience: VTE Contraindication to Overlap Therapy: Overlap treatment not indicated VTE Discharge Education: Education about anticoagulant therapy/Care Notes given, Education about treatment options/disease process, Medication side effects education and Follow-up arranged Deep Vein Thrombosis/Pulmonary Embolism Present on Admission: Yes and None Coding Level of Care Code Acute Three Dimensional Map Modeler for g Fwd Exam Problem Focused Diagnoses Pulmonary embolism I26.94 Pulmonary embolism type: multiple subsegmental (without acute cor pulmonale) Community acquired pneumonia J18.9 Laterality: left Lung location: lower lobe of lung
[2019-05-20 10:21] VITALS: O2SAT 93; O2SAT 96
[2019-05-20 10:45] VITALS: BP 126/67; BP 84/50; PULSE 72; PULSE 73; RESP 20; RESP 29; TEMP 36.5; TEMP 36.6; O2SAT 92; O2SAT 95
--- NOTE | 2019-05-20 11:00 | PC.NURSE ---
dr aldana notified of bp 89/60.( hr 72).pt sitting up in chair.denies dizziness/nausea .wilL cont to observe.
--- NOTE | 2019-05-20 11:51 | PC.RESP ---
Patient does not have a qualifying hx of lung disease at this time.
--- NOTE | 2019-05-20 12:55 | PC.NURSE ---
bp checked freq...now 104/54.pt denies dizziness.dr aldana has examined pt and states she is good for discharge.
[2019-05-20 12:57] VITALS: BP 105/52
== END 2019-05-20 12:53 | disposition home or self-care (01) | DRG 175 ==
LOC: ER 22:59 → CSU 23:14
PROVIDERS: Admitting Provider Hospitalist; Emergency Provider Emergency Medicine; Family Provider Family Medicine; PCP Family Medicine; Visit Provider Family Medicine
DX: I26.94 Multiple subsegmental thrombotic pulmonary emboli without acute cor pulmonale (principal); J18.9 Pneumonia, unspecified organism; J90 Pleural effusion, not elsewhere classified; Z79.899 Other long term (current) drug therapy; R59.0 Localized enlarged lymph nodes; F03.90 Unspecified dementia, unspecified severity, without behavioral disturbance, psychotic disturbance, mood disturbance, and anxiety
CPT/HCPCS: 12345; 36415; 71045; 71275; 80048; 80053; 83605; 83735; 83880; 84484; 85025; 85378; 85610; 87040; 93005; 93308; 93970; 96372; 99282; J1650; J2543; J3370; J7050; Q9967

== ENCOUNTER 2019-05-27 16:09 | Outpatient (CLI) | payer MEDICARE, SELFPAY ==
--- NOTE | 2019-05-27 16:26 | XR_ITS ---
WS: [id number] XR chest 2V* [id number] REASON FOR EXAM: loculated pleural effusion FINDINGS: Comparisons were made to May 18, 2019. There is now increased pleural effusion on the left extends to the 8th interspace. The heart is not enlarged. The remaining lung bell are clear. XR/XR chest 2V* [id number] IMPRESSION: Increased left pleural effusion.
== END 2019-05-27 16:10 | disposition home or self-care (01) ==
LOC: RAD 16:13
PROVIDERS: Family Provider Family Medicine; PCP Family Medicine; Visit Provider Internal Medicine Critical Care Medicine
DX: J90 Pleural effusion, not elsewhere classified (principal)
CPT/HCPCS: 71046

== ENCOUNTER → 2019-06-02 11:07 | Day surgery (SDC) | payer MEDICARE, SELFPAY ==
[2019-06-02 12:20] VITALS: BP 119/53; PULSE 63; RESP 22; TEMP 37; O2SAT 97; BMI 26.8
--- NOTE | 2019-06-02 12:56 | XR_ITS ---
WS: [id number] Portable AP upright chest, 06/02/2019 Clinical Data: S/P LT THORACENTESIS Comparison: PA and lateral chest, 05/27/2019 Findings: The left pleural effusion remains unchanged. There is small atelectatic changes peripherall y in the right middle lobe. No pneumonia or pneumothorax is present. The pulmonary vascularity is not increased. The heart size remains the same. There are clips in the right upper quadrant from a valentina cystectomy. XR/XR chest 1V portable [id number] Impression: 1. No significant change in left pleural effusion. 2. Minimal peripheral right middle lobe atelectasis unchanged
[2019-06-02 14:41] LABS: Body Fluid Polynuclear #Cells 0.244 10^3/uL; Body Fluid WBC 1456 u/L; Monocytes # Body Fluid 1.212 10^3/uL; RBC, Body Fluid 3 10^3/uL (0-0)
[2019-06-02 14:44] LABS: Apprearance, Body Fluid CLOUDY (CLEAR); Color, Body Fluid PALE YELLOW (PALE YELLOW)
[2019-06-02 14:59] LABS: Albumin Body Fluid 2.8 g/dL; LDH Pleural Fluid 204 U/L
[2019-06-03 11:58] LABS: Total Protein Pleural Fluid 4.4 g/dL
== END | disposition home or self-care (01) ==
PROVIDERS: Family Provider Family Medicine; PCP Family Medicine; Visit Provider Internal Medicine Critical Care Medicine
DX: J90 Pleural effusion, not elsewhere classified (principal)
CPT/HCPCS: 32555; 71045; 80500; 82042; 82945; 83615; 83986; 84157; 87070; 87075; 87205; 88112; 88305; 89050

== ENCOUNTER 2019-08-18 12:29 | Outpatient (CLI) | payer MEDICARE, SELFPAY ==
--- NOTE | 2019-08-18 12:30 | USCV_ITS ---
Mary De La Vega Age: 74 Gender: F : 1945 Exam Date: 08/18/2019 13:09 Ordering Phys: Chauncey Adams MD Technologist: Lazaro Mcdowell Exam Location: [facility] – [place] Indication: PE BP: 125 / 70 HR: 54 Rhythm: Sinus Technical Quality: Adequate MEASUREMENTS (Male / Female) Normal Values 2D ECHO LV Diastolic Diameter PLAX 3.7 cm 4.2 - 5.9 / 3.9 - 5.3 cm LV Systolic Diameter PLAX 2.2 cm IVS Diastolic Thickness 0.9 cm 0.6 - 1.0 / 0.6 - 0.9 cm IVS Systolic Thickness 1.1 cm LVPW Diastolic Thickness 1.0 cm 0.6 - 1.0 / 0.6 - 0.9 cm LVPW Systolic Thickness 1.1 cm LVOT Diameter 2.0 cm LV Ejection Fraction 2D Teich 71.1 % LV Ejection Fraction MOD 2C 64.7 % LV Ejection Fraction 2C AL 65.4 % LA Diameter 2.9 cm LA Width 3.1 cm LA Height 4.1 cm RA Width 2.8 cm RA Height 4.2 cm Aorta at Sinotubular Diameter 2.8 cm M-MODE LV Diastolic Diameter MM 4.3 cm 4.2 - 5.9 / 3.9 - 5.3 cm LV Systolic Diameter MM 2.9 cm LV Ejection Fraction MM Teich 60.8 % IVS Diastolic Thickness MM 1.2 cm 0.6 - 1.0 / 0.6 - 0.9 cm IVS Systolic Thickness MM 1.3 cm LVPW Diastolic Thickness MM 1.1 cm 0.6 - 1.0 / 0.6 - 0.9 cm LVPW Systolic Thickness MM 1.7 cm RV Diastolic Diameter MM 2.1 cm Aortic Annulus Diameter 2.9 cm LA Ao Ratio MM 1.0 MV E Point Septal Separation 0.7 cm DOPPLER AV Peak Velocity 140.0 cm/s LVOT Peak Velocity 97.0 cm/s AV Area Cont Eq vti 2.1 cm squared AV Area Cont Eq pk 2.2 cm squared MV Area PHT 3.4 cm squared Mitral E to A Ratio 1.0 MV E' Velocity 9.0 cm/s Mitral E to MV E' Ratio 9.2 Mitral E to LV E' Lateral Ratio 7.9 Mitral E to LV E' Septal Ratio 11.1 TR Peak Velocity 309.0 cm/s TR Peak Gradient 38.3 mmHg TV Peak E Velocity 130.0 cm/s Right Atrial Pressure 3.0 mmHg Pulmonary Artery Systolic Pressu 41.2 mmHg PV Peak Velocity 108.0 cm/s FINDINGS Left Ventricle Normal left ventricular size and systolic function, EF 64 %. No regional wall motion abnormalities. Right Ventricle The right ventricle is normal in size and function. Right Atrium The right atrium is normal in size. Left Atrium The left atrium is normal in size. Mitral Valve Mild mitral valve regurgitation. Aortic Valve Mild aortic valve regurgitation. Thickened aortic valve. Tricuspid Valve Mild tricuspid valve regurgitation. Pulmonic Valve Pulmonic valve not well visualized. Pericardium Normal pericardium without effusion. Aorta Normal ascending aorta dimension. CONCLUSIONS Normal left ventricular size and systolic function, EF 64 %. No regional wall motion abnormalities. Thickened aortic and mitral valves. Mild aortic, mitral and tricuspid regurgitation There is no pericardial effusion. There are no intracardiac masses. Compared to previous study from 05/18/2019, there may not be a significant change. The exact comparison is difficult because of the differences in technical quality Dr Carolin Moran MD [facility] (Electronically Signed) Final Date: 18 Aug 2019 21:14 S
== END 2019-08-18 12:30 | disposition home or self-care (01) ==
LOC: RAD 12:32
PROVIDERS: PCP Family Medicine; Visit Provider Internal Medicine Critical Care Medicine
DX: I26.99 Other pulmonary embolism without acute cor pulmonale (principal); I08.3 Combined rheumatic disorders of mitral, aortic and tricuspid valves
CPT/HCPCS: 93306

== ENCOUNTER 2019-09-01 14:28 | Outpatient (CLI) | payer MEDICARE, SELFPAY ==
--- NOTE | 2019-09-01 14:37 | XRR_ITS ---
PROCEDURE INFORMATION: Exam: XR Chest, 2 Views Exam date and time: 09/01/2019 2:49 PM Age: 74 years old Clinical indication: Shortness of breath; Additional info: Pleural effusion, SOB TECHNIQUE: Imaging protocol: XR of the chest Views: 2 views. COMPARISON: CR XR chest 1V portable [id number] 06/02/2019 1:04 PM FINDINGS: Lungs: Interstitial congestion left lower lobe Pleural space: Unremarkable. No pleural effusion. No pneumothorax. Heart/Mediastinum: Unremarkable. No cardiomegaly. Bones/joints: Dorsal spine osteopenia and osteoarthritis is seen. XR/XR chest 2V* [id number] IMPRESSION: Left lower lobe interstitial congestion Otherwise No acute findings.
== END 2019-09-01 14:29 | disposition home or self-care (01) ==
LOC: RAD 14:32
PROVIDERS: PCP Family Medicine; Visit Provider Internal Medicine Critical Care Medicine
DX: J90 Pleural effusion, not elsewhere classified (principal); R09.89 Other specified symptoms and signs involving the circulatory and respiratory systems
CPT/HCPCS: 71046

== ENCOUNTER 2019-10-08 12:38 | Outpatient (CLI) | payer MEDICARE, SELFPAY ==
--- NOTE | 2019-10-08 13:22 | PFTS_ITS ---
Date of Study:10/08/19 Date of Dictation: MECHANICS: Forced vital capacity (FVC) is normal. Forced expiratory volume in one second (FEV1) is normal. FEV1/FVC is normal. FLOW VOLUME LOOP: Hesitation on forced expiratory maneuver with minimal scooping likely secondary to aging. LUNG VOLUMES: Total lung capacity (TLC) is normal. Residual volume (RV) is mildly reduced. DIFFUSING CAPACITY FOR CARBON MONOXIDE: Mildly reduced. INTERPRETATION: The pulmonary function tests are normal. No postbronchodilator response was performed. Lung volumes are essentially normal. Gas exchange (DLCO) is mildly reduced. MTDD
== END 2019-10-08 12:39 | disposition home or self-care (01) ==
LOC: RT 12:39
PROVIDERS: PCP Family Medicine; Visit Provider Internal Medicine Critical Care Medicine
DX: R06.02 Shortness of breath (principal)
CPT/HCPCS: 94010; 94726; 94729

== ENCOUNTER 2020-02-08 13:58 | Outpatient (CLI) | payer MEDICARE, SELFPAY ==
--- NOTE | 2020-02-08 14:05 | MM_ITS ---
WS: [id number] BILATERAL DIGITAL SCREENING MAMMOGRAPHY WITH CAD CLINICAL INFORMATION: SCREENING HISTORY: Screening mammogram. No current complaints. COMPARISON: TECHNIQUE: Bilateral CC and MLO views. FINDINGS: The breasts are composed of heterogeneous fibroglandular density tissue, which can limit the detectio n of small underlying mass lesions. No suspicious mass, asymmetry, calcifications, or architectural d istortion. No evidence of malignancy. Vascular calcifications. Punctate calcifications. MM/[place] [id number] IMPRESSION: BI-RADS: 2-Benign FOLLOW UP: 1 Year Follow-up Recommend return to annual screening mammography.
== END 2020-02-08 13:59 | disposition home or self-care (01) ==
LOC: RADSHAW 14:02
PROVIDERS: PCP Family Medicine; Visit Provider Family Medicine
DX: Z12.31 Encounter for screening mammogram for malignant neoplasm of breast (principal)
CPT/HCPCS: 77067

== ENCOUNTER → 2020-03-17 11:22 | Outpatient (BNVA) | payer MEDICARE, SELFPAY | PROVIDERS: PCP Family Medicine; Visit Provider Surgery | DX: Z20.828 Contact with and (suspected) exposure to other viral communicable diseases (principal); K92.1 Melena | CPT/HCPCS: 87635 ==

== ENCOUNTER 2020-03-23 08:55 | Day surgery (SDC) | payer MEDICARE, SELFPAY ==
[2020-03-23 09:24] VITALS: BP 127/65; PULSE 74; RESP 18; TEMP 36.5; O2SAT 98
[2020-03-23] MEDS: sodium chloride 0.9% 1,000 ML 30 ML IV (09:29)
--- NOTE | 2020-03-23 09:50 | W.PM.OPSUD ---
Surgery/Procedure H&P Update DATE OF PROCEDURE: March 23, 2020 DATE H&P PERFORMED: 03/09/20 H&P UPDATE INFORMATION: I have reviewed H&P completed within last 30 days, I have examined patient prior to procedure and No changes to prior documentation PREOP DIAGNOSIS: BLOOD IN STOOL PRIMARY INDICATION FOR PROCEDURE: The same PLANNED PROCEDURE: Operation Date: 03/23/20 10:00 Proposed Procedures p Colonoscopy 19719 K92.1(Not Applicable) - Ayan Matson MD
--- NOTE | 2020-03-23 10:18 | P.ANESASSM_ITS ---
Pre-Anesthetic Assessment Pre-Anesthetic Assessment: Height/Weight: Height 1.5 m Weight 58.967 kg Temp Pulse Resp BP Pulse Ox 97.7 F 74 18 127/65 98 03/23/20 09:24 03/23/20 09:24 03/23/20 09:24 03/23/20 09:24 03/23/20 09:24 Preop Diagnosis: BLOOD IN STOOL Proposed Procedure: Operation Date: 03/23/20 10:00 Proposed Procedures p Colonoscopy 67054 K92.1(Not Applicable) - Ayan Matson MD Familial anesthetic complications: None Was Beta Harini taken within 24 hours: N/A Last intake: Intake Last Liquid Date 03/22/20 Last Liquid Time 22:00 Last Solid Date 03/21/20 Last Solid Time 22:00 Social: Social History: No alcohol and No tobacco Exam: Pre-Anes Outpt Exam: alert, oriented x 3, clear to auscultation aramis aterally and regular rate & rhythm Airway: Cervical ROM: WNL MP: 2 Dentition: Full Pulmonary: Comments: Hx PE on eliquis -holding since saturday Neuropsych: Neuropsych: Dementia Anesthetic Plan: ASA status: 2 Anesthesia: MAC Risk of > 500 ml blood loss (7ml/kg in children): No Meds/Allergies Current Medications: Current Medications Generic Name Dose Route Start Last Admin Trade Name Freq PRN Reason Stop Dose Admin Sodium Chloride 1,000 mls @ 30 ml s/hr 03/23/20 09:15 03/23/20 09:29 Sodium Chloride 0.9% IV 30 mls/hr .Q24H KHARI Administration PFSH Anesthesia PFSH: Medical History Loculated pleural effusion Surgical History H/O: hysterectomy History of colon resection Hx of cholecystectomy Family History Denies family history of CAD (coronary artery disease) Clotting disorder Bleeding disorder Social History Smoking and tobacco status: never smoked Alcohol intake: never Lives independently: Yes Household members: spouse Marital status: Current occupational status: retired History of recent travel: No Current gender identity: Female Data Anesthesia Cardiac Studies: No Data to Display
[2020-03-23 10:51] VITALS: BP 127/59; PULSE 57; RESP 16; TEMP 36.3; O2SAT 97
--- NOTE | 2020-03-23 10:55 | ANE.PACU2 ---
Inpatient post-anesthesia follow up: Airway intact: Yes Vital signs: Temperature 97.7 F Pulse Rate 74 Respiratory Rate 18 Blood Pressure 127/65 Pulse Oximetry 98 Oxygen Delivery Me thod Room Air Oxygen Flow Rate Fraction of Inspir ed Oxygen Hydration adequate: Yes Nausea and vomiting: No Pain level: 1 Mental status: Baseline
[2020-03-23 11:09] VITALS: BP 120/66; PULSE 56; RESP 16; O2SAT 95
== END 2020-03-23 11:24 | disposition home or self-care (01) ==
PROVIDERS: PCP Family Medicine; Visit Provider Surgery
PROC: 0DJD8ZZ Inspection of Lower Intestinal Tract, Via Natural or Artificial Opening Endoscopic (ICD-10-PCS; CPT 45378; principal; 2020-03-23 10:00)
DX: K92.1 Melena (principal); Z86.711 Personal history of pulmonary embolism; Z79.01 Long term (current) use of anticoagulants; F03.90 Unspecified dementia, unspecified severity, without behavioral disturbance, psychotic disturbance, mood disturbance, and anxiety; Z90.49 Acquired absence of other specified parts of digestive tract; Z90.710 Acquired absence of both cervix and uterus
CPT/HCPCS: 12345; 45378; J2704; J7030

== ENCOUNTER 2021-02-14 11:54 | Outpatient (CLI) | payer MEDICARE, SELFPAY ==
--- NOTE | 2021-02-14 12:04 | MM_ITS ---
WS: [id number] BILATERAL SCREENING DIGITAL MAMMOGRAM WITH CAD HISTORY: SCREENING COMPARISON: 02/08/2020 and 02/05/2019 Bilateral CC and MLO views submitted. Computer aided detection analyzed. Breast composition: There are scattered areas of fibroglandular density. No suspicious masses, microc alcifications or architectural distortion. Scattered benign calcifications and vascular calcification s. MM/[place] [id number] IMPRESSION: BI-RADS: 2-Benign FOLLOW UP: 1 Year Follow-up
== END 2021-02-14 11:55 | disposition home or self-care (01) ==
LOC: RADSHAW 12:01
PROVIDERS: PCP Family Medicine; Visit Provider Family Medicine
DX: Z12.31 Encounter for screening mammogram for malignant neoplasm of breast (principal)
CPT/HCPCS: 77067